=== PATIENT | female | born 1950 | race Caucasian/White ===

== ENCOUNTER 2017-08-18 10:22 | Outpatient (CLI) | payer MEDICARE, MEDICAID ==
--- OUTSIDE RECORDS SUMMARY | 2017-08-18 10:40 | XMS | Clinical Summary ---
:1950 Author Organization [facility] Address [address] [place] [address] Phone Care Team Providers Name Role Phone , Primary Care Provider Unavailable Allergies Not on File Current Medications Not on file Active Problems Not on file Social History Tobacco Use Types Packs/Day Years Used Date Never Assessed Sex Assigned at Date Recorded Not on file Last Filed Vital Signs Not on file Plan of Treatment Not on file Results Not on filefrom Last 3 Months
--- NOTE | 2017-08-18 14:33 | ULT ---
ULTRASOUND HEPATIC DOPPLER: Date: 08/18/17 HISTORY: Hepatitis C. COMPARISON: 2008. TECHNIQUE: Real-time Packer scale with color Doppler and spectral analysis of the liver and vessels was performed with a curvilinear transducer. FINDINGS: Hepatic contour is nodular. The echotexture is coarsened. The veins are patent with expected normal antegrade flow. No hepatic mass is visualized. Liver measures 19.3 cm in length. Spleen measures 11.6 cm x 7.0 x 4.6 cm. Splenic artery and vein are patent. The gallbladder has been removed. Sonographic Ames's sign is negative. Common bile duct measures 5 .0 mm. Pancreas is only partially seen. IMPRESSION: 1. Patent portal vein and portal venous branches, as well as hepatic veins. No directional flow. 2. Hepatic cirrhosis. No mass is appreciated. POS: [facility]
== END 2017-08-18 10:23 | disposition home or self-care (01) ==
LOC: ULT 10:22
PROVIDERS: ATTEND Internal Medicine Gastroenterology
DX: R19.7 Diarrhea, unspecified (principal); K74.60 Unspecified cirrhosis of liver
CPT/HCPCS: 36415; 76705; 80053; 82105; 83516; 84443; 85025

== ENCOUNTER 2017-11-11 17:58 | Emergency (ER) | payer MEDICARE, MEDICAID ==
--- NOTE | 2017-11-11 18:50 | RAD ---
TWO VIEWS CHEST: 11/11/17 PROVIDED CLINICAL HISTORY: Cough. FINDINGS: Comparison 05/18/13. Cardiac and mediastinal silhouette is within normal limits. The lungs appear clear. There is no pleur al fluid or pneumothorax apparent. IMPRESSION: No evidence for an acute cardiopulmonary process. POS: [facility]
[2017-11-11] MEDS ORDERED: Dexamethasone 4 mg/ml Vial ONE ×2 (19:59→20:01)
[2017-11-11] MEDS ORDERED: Acetaminophen 500 MG TAB ONE (20:51)
== END 2017-11-11 20:55 | disposition home or self-care (01) ==
LOC: ERS 17:58
DX: J11.1 Influenza due to unidentified influenza virus with other respiratory manifestations (principal); I25.2 Old myocardial infarction; E11.9 Type 2 diabetes mellitus without complications; I69.354 Hemiplegia and hemiparesis following cerebral infarction affecting left non-dominant side; E03.9 Hypothyroidism, unspecified; K74.60 Unspecified cirrhosis of liver; F31.9 Bipolar disorder, unspecified; F32.9 Major depressive disorder, single episode, unspecified
CPT/HCPCS: 71046; 94640; J1100; J7620

== ENCOUNTER 2018-02-01 20:10 | Observation (INO) | payer MEDICARE, MEDICAID ==
[2018-02-01 20:46] LABS: Mean Corpuscular HGB CONC 34.6 g/dL (32.0-36.0); Mean Corpuscular Hemoglobin 31.7 pg (27.0-31.0); Mean Corpuscular Volume 91.5 fl (81.0-99.0); Mean Platelet Volume 6.2 fL (7.4-10.4); Platelet Count 137 thou/uL (130-400); Red Blood Cell (RBC) Count 4.41 mill/uL (4.20-5.40); White Blood Cell (WBC) Count 4.9 thou/uL (4.8-10.8)
--- NOTE | 2018-02-01 21:03 | RAD ---
PA AND LATERAL CHEST: INDICATIONS: Chest pain. COMPARISON: 11/11/2017 FINDINGS: The lungs are clear. The cardiomediastinal silhouette is within normal limits. Post surgical change involving the lower cervical spine and both shoulders appears stable. No acute osseous abnormality is evident. IMPRESSION: No acute cardiopulmonary abnormality. POS: [facility]
[2018-02-01 21:06] LABS: ALT (SGPT) 23 U/L (8-55); AST (SGOT) 22 U/L (5-34); Albumin 4.3 g/dL (3.4-4.8); Alkaline Phosphatase 86 U/L (40-150); Anion Gap 15 mmol/L (10-20); BUN (Urea Nitrogen) 11 mg/dL (9.8-20.1); Bilirubin, Total 0.5 mg/dL (0.2-1.2); CK (CPK) 65 U/L (29-168); Calc. Creatinine Clearance 0 mL/min (70-130); Calcium 9.7 mg/dL (7.8-10.44); Carbon Dioxide 25 mmol/L (23-31); Chloride 98 mmol/L (98-107); Estimated GFR-MDRD 48; Globulin 3.4 g/dL (2.4-3.5); Glucose 456 mg/dL (80-115); Lipase 24 U/L (8-78); Potassium 3.8 mmol/L (3.5-5.1); Protein, Total 7.7 g/dL (6.0-8.3); Sodium 134 mmol/L (136-145)
[2018-02-01 21:14] LABS: Band 2 % (5-11); Eosinophils 3 % (0-10); Lymphocytes 47 % (21-51); MDiff Complete? YES; Monocytes 10 % (0-10); Neutrophil 35 % (42-75); Reactive Lymphocytes 3 % (0-10); Troponin I Less than 0.010 ng/mL (< 0.028)
[2018-02-01] MEDS ORDERED: Insulin Regular 300 UNITS/3 ML VIAL ONE ×2 (22:02→22:06)
[2018-02-01] MEDS ORDERED: Nitroglycerin 2% Ointment 1 INCH/1 GM Packet ONE (22:02)
[2018-02-01] MEDS ORDERED: Acetaminophen 325 MG TAB PO PRN (23:24)
[2018-02-01] MEDS ORDERED: Metoprolol Tartrate 25 MG TAB PO SCH (23:24)
[2018-02-01] MEDS ORDERED: Dextrose 5% in Water 1,000 ML IV PRN (23:24)
[2018-02-01] MEDS ORDERED: Dextrose 50% Abboject 50 ML SYRINGE SLOW IVP PRN (23:24)
[2018-02-01] MEDS ORDERED: Ondansetron ODT 4 MG TAB PO PRN (23:24)
[2018-02-01] MEDS ORDERED: HumaLOG 300 UNITS/3 ML VIAL SC PRN (23:24)
[2018-02-01] MEDS ORDERED: Enoxaparin Sodium 40 MG/0.4 ML SYRINGE SC SCH (23:24)
[2018-02-01] MEDS ORDERED: Ondansetron HCl/PF 4 MG/2 ML Vial IVP PRN (23:24)
[2018-02-01] MEDS ORDERED: Aspirin 325 MG TAB PO SCH (23:30)
[2018-02-02 00:21] LABS: CKMB 0.8 ng/mL (0-6.6); Troponin I Less than 0.010 ng/mL (< 0.028)
[2018-02-02] MEDS ORDERED: Mirtazapine 30 MG TAB PO SCH ×2 (01:15→21:00)
[2018-02-02] MEDS ORDERED: Gabapentin 400 MG CAP PO SCH ×2 (01:15→21:00)
[2018-02-02] MEDS ORDERED: rOPINIRole HCl 0.25 MG TAB PO SCH ×2 (01:15→21:00)
[2018-02-02] MEDS ORDERED: Topiramate 25 MG TAB PO SCH ×2 (01:15→21:00)
[2018-02-02] MEDS ORDERED: Donepezil HCl 5 MG TAB PO SCH ×2 (01:15→21:00)
[2018-02-02 01:53] VITALS: BMI 36.4
[2018-02-02] MEDS: Nitroglycerin 2% Ointment 1 INCH/1 GM Packet TOP SCH ×2 (05:09→15:27)
[2018-02-02 05:55] LABS: Hemoglobin A1c 9.6 % (4.0-6.0)
--- NOTE | 2018-02-02 05:56 | HP ---
PRIMARY CARE PHYSICIAN: Jerrod Hernandez. CHIEF COMPLAINT: Chest pain. HISTORY OF PRESENT ILLNESS: Ms. Doshi is a 67-year-old white female with a history of coronary dise ase, diabetes, cerebrovascular disease status post strokes and TIAs in the past, De La Fuente's palsy, hepati tis C, cirrhosis, bipolar and depression. The patient was in normal state of health and presented to outside urgent care for evaluation of ches t pain. This started about 4-5 days ago. She describes intermittent to the left chest. She does molina ve some neck referral. States she was standing still when this started up and it is made better if s he does not move and does not push on her chest. It is exacerbated by pushing on her chest reproduce s. She has had some dyspnea on exertion and some orthopnea and when she lays flat or rolls over to eithe r side her cough gets worse. She does have a headache on occasion, but no other current complaints. She specifically denies fevers or chills, nausea, vomiting, diarrhea, constipation. She had her last echo here was in 12/04/2014 that showed an EF of 50-55%, grade 1-3 diastolic dysfunc tion and mild aortic valve disease. PAST MEDICAL HISTORY: 1. Coronary artery disease with history of NV in the past. 2. Diabetes mellitus type 2, insulin-dependent. 3. Cerebrovascular accident x2. 4. TIA x1. 5. De La Fuente's palsy. 6. Hepatitis C. 7. Hypothyroidism. 8. Cirrhosis. 9. Bipolar disorder. 10. Depression. PAST SURGICAL HISTORY: 1. Thyroidectomy. 2. Appendectomy. 3. Cholecystectomy. 4. . 5. Hysterectomy. 6. Carpal tunnel release bilaterally. 7. Back surgery x2. 8. Rotator cuff repair. 9. Heart catheterization in the past. HOME MEDICATIONS: 1. Shahana 180 mg daily. 2. Mirtazapine 45 mg p.o. at bedtime. 3. Ropinirole 0.25 mg p.o. q.p.m. 4. Levothyroxine 175 mcg daily. 5. Topiramate 25-50 mg p.o. b.i.d. 6. Sertraline 100 mg daily. 7. Gabapentin 600 mg p.o. b.i.d. 1200 mg p.o. at bedtime. 8. Donepezil 5 mg p.o. q.p.m. 9. Metformin 500 mg p.o. daily. 10. Phenergan DM syrup as needed. 11. Regular insulin 15 units subcu b.i.d. ALLERGIES: 1. ASPIRIN. 2. BACTRIM. FAMILY HISTORY: Negative for clot or bleeding disorder. No immune dysfunction. SOCIAL HISTORY: Negative for habits x3. She does live alone. REVIEW OF SYSTEMS: A 10-point review of systems was performed and is negative for all systems except as stated as per HPI. PHYSICAL EXAMINATION: VITAL SIGNS: Temperature is 98.7, pulse 95, blood pressure 131/80, respiratory rate 20, satting 94% on room air. GENERAL: She is awake. She is alert. She is oriented x3. She is a somewhat odd sounding white fem carmenza. She does sound like she has a mental handicap. HEENT: Normocephalic, atraumatic. Pupils are equal, round, react to light bilaterally, mucous membr anes are moist. She has no visible lesions or thrush. NECK: Supple. She has no lymphadenopathy, JVD or thyromegaly. She has no normal carotid upstrokes. I do not appreciate bruits. LUNGS: Clear to auscultation bilaterally. She had no wheezes, no rales, no rhonchi. She has good a ir movement. Symmetrical chest excursion. No prolonged expiratory phase. CARDIOVASCULAR: She is slightly tachycardia, but regular. Normal S1, S2. No S3 or S4. I do not ap preciate any murmurs. ABDOMEN: Obese, she is nontender, nondistended. She has no rebound, rigidity or guarding. There is good bowel sounds in all 4 quadrants. EXTREMITIES: No cyanosis, no clubbing. Trace pedal edema. She has got 1+ dorsalis pedis and neonatal surgeon ior tibial pulses. SKIN: Skin is otherwise, warm, moist and well perfused. There are no other rashes or lesions. MUSCULOSKELETAL: Normal to inspection. Large joints appear normal. She has no inflammation, no pal pable effusions. She has tenderness to palpation that reproduces her presenting chest pain with palp ation over the left upper chest. NEUROLOGIC: Cranial nerves II-XII grossly intact. She has a normal speech pattern, she has 5/5 stre ngth in all 4 extremities. She has no focal neurologic deficits. LABORATORY DATA: Sodium 134, potassium 3.8, chloride 98, bicarbonate 25, BUN 11, creatinine 1.14, wh ich is up from baseline of 0.9, glucose was 456, calcium 9.7. Liver functions are within normal limi ts. CBC showed a white count of 4.9. She has a 35% granulocytes, 2% bands, and 47% lymphocytes. He moglobin is 14.0, hematocrit of 40.4, and platelet count is 137,000. Biomarkers are normal with a BNP of 69.8, CK-MB of 1.0 and troponin I undetectable., less than 0.010. Chest x-ray showed no acute cardiopulmonary disease. ASSESSMENT AND PLAN: 1. Atypical chest pain. Reproducible by palpation of the chest. I doubt this is her heart. We annemarie l place her in observation. Nitro paste and beta geraldo has been ordered, we will watch serial card iac biomarkers overnight and watch on telemetry. She may need to repeat echocardiogram due to the fa ct that it has been 3 years since her last one. 2. Diabetes mellitus type 2, we will continue sliding scale insulin for correction. She will be n.p .o. after midnight. 3. Cerebrovascular disease. 4. History of De La Fuente's palsy. 5. Hepatitis C with cirrhosis. No hepatic coma. 6. Hypothyroidism. We will continue her levothyroxine. 7. Bipolar disorder and depression. Continue home medications. The patient will be placed in observation on the observation unit with telemetry monitoring.
[2018-02-02] MEDS ORDERED: Levothyroxine 175 MCG TAB PO SCH (06:00)
[2018-02-02 06:22] LABS: CKMB 0.9 ng/mL (0-6.6); Troponin I Less than 0.010 ng/mL (< 0.028)
[2018-02-02 06:28] LABS: Anion Gap 11 mmol/L (10-20); BUN (Urea Nitrogen) 11 mg/dL (9.8-20.1); Calc. Creatinine Clearance 92 mL/min (70-130); Calcium 10.2 mg/dL (7.8-10.44); Carbon Dioxide 30 mmol/L (23-31); Cardiac Risk 5.1 (Less than 4.5); Chloride 102 mmol/L (98-107); Cholesterol 208 mg/dl (< 200 Desired); Estimated GFR-MDRD 69; Glucose 267 mg/dL (80-115); HDL Cholesterol 41 mg/dL (>60 Neg Risk); LDL Cholesterol, Calculated 127 mg/dL; Magnesium 1.8 mg/dL (1.6-2.6); Sodium 139 mmol/L (136-145); Triglycerides 198 mg/dL (Less than 150)
[2018-02-02 06:37] LABS: Band 3 % (5-11); Eosinophils 6 % (0-10); Hemoglobin 12.8 g/dL (12.0-16.0); Lymphocytes 58 % (21-51); MDiff Complete? YES; Mean Corpuscular HGB CONC 33.6 g/dL (32.0-36.0); Mean Corpuscular Hemoglobin 30.9 pg (27.0-31.0); Mean Platelet Volume 6.3 fL (7.4-10.4); Monocytes 5 % (0-10); Neutrophil 25 % (42-75); Platelet Count 138 thou/uL (130-400); Reactive Lymphocytes 3 % (0-10); Red Blood Cell (RBC) Count 4.16 mill/uL (4.20-5.40); White Blood Cell (WBC) Count 6.2 thou/uL (4.8-10.8)
[2018-02-02] MEDS ORDERED: Famotidine 20 MG TAB PO SCH (09:00)
[2018-02-02] MEDS ORDERED: Prevnar 13-Val Conj/PF 0.5 ML SYRINGE IM ONE (09:00)
[2018-02-02] MEDS ORDERED: Metoprolol Tartrate 25 MG TAB PO SCH (09:00)
--- NOTE | 2018-02-02 13:42 | NM ---
NUCLEAR MEDICINE CARDIAC STRESS STUDY WITH EJECTION FRACTION: HISTORY: Chest pain. TECHNIQUE: This is done as a stress study only, using 30.5 millicuries of 99m technetium sestamibi. FINDINGS: This shows a fairly normal distribution of radiopharmaceutical. No signs of ischemia. WALL MOTION: There is symmetric contractility to the ventricle. LEFT VENTRICULAR EJECTION FRACTION: The calculated left ventricular ejection fraction is 67%. IMPRESSION: Unremarkable myocardial stress study. POS: [facility]
--- NOTE | 2018-02-02 15:02 | CT ---
CT ANGIOGRAM OF CHEST WITH CONTRAST: Date: 02/02/18 HISTORY: Chest pain, chest pressure, pulmonary embolism. COMPARISON: Chest radiograph from prior day. TECHNIQUE: CT angiogram chest performed after the intravenous administration of contrast. 3D rendering provided. FINDINGS: The esophagus is dilated with extensive debris within the esophagus. There is also some radiopaque ma terial within the mid and upper 1/3 of esophagus, which is curvilinear in shape. Lap band is in place . Evaluation for distal embolism is limited due to phase of contrast. No proximal or segmental pulmonar y arterial filling defect. The hepatic contour appears to be somewhat nodular. There are perihepatic varices. Pulmonary trunk size measures over 3.5 cm, markedly dilated. Dense mitral annular calcifications. Mild peribronchovascular cuffing. Mild interstitial thickening suggesting edema. No pneumothorax. No large effusion. There is cardiomegaly. IMPRESSION: 1. No segmental pulmonary arterial filling defect. 2. Pulmonary arterial hypertension. 3. Extensive debris and radiopaque material within the dilated esophagus may be due to stricture, ma ss, or lap band. Recommend upper endoscopy. 4. Mild pulmonary edema and cardiomegaly. POS: [facility]
[2018-02-02 16:00] VITALS: BP 106/57; TEMP 97.6
[2018-02-02] MEDS ORDERED: Iopamidol 370 76% 100 ML VIAL ONE (16:09)
[2018-02-02] MEDS ORDERED: Regadenoson 0.4 MG/5 ML SYRINGE ONE (16:20)
--- NOTE | 2018-02-02 20:38 | DIS ---
DATE OF ADMISSION: 02/02/2018 DATE OF DISCHARGE: 02/02/2018 PRIMARY CARE PROVIDER: Jie Garza NP DISCHARGE DIAGNOSES: 1. Chest pain. 2. Esophageal dilatation with extensive debris within the esophagus as seen on CT angiogram of chest . 3. Pulmonary arterial hypertension with markedly dilated pulmonary trunk size as seen on CT angiogra m of chest. CONDITION OF PATIENT AT THE TIME OF DISCHARGE: Stable. I assessed Ms. Doshi prior to discharge. S he reports that chest pain has improved. She also reports occasional cough, but no fevers or sputum. Vital signs are stable. S1 and S2 are heard, regular. Lungs are clear to auscultation bilaterally . DISCHARGE MEDICATIONS: In addition to the preadmission home medications as dictated on history and p hysical note from 02/02/2018, she is being discharged home on Tessalon Perles 100 mg 3 times a day as needed. HOSPITAL COURSE: Mr. Doshi is a pleasant 67-year-old lady, who was admitted to [facility] on observation status on 02/02/2018 for atypical chest pain. She had a nuclear stress test, which was unremarkable. She had left ventricular ejection fraction of 67%. She had an abnorma l D-dimer, which triggered CT angiogram of the chest. There was no segmental pulmonary arterial fill ing defect. She had pulmonary arterial hypertension and extensive debris and radiopaque material wit hin the dilated esophagus, likely due to the patient's lap band. The patient reported that she sees Dr. Mccracken as outpatient and she will follow up with him as outpat ient. She has also been advised to follow up with armature inspector through her primary care provider's office. She had elevated triglycerides of 198, cholesterol 208, LDL cholesterol 127 and HDL cholesterol 41. Her creatinine was normal at 0.83. She had a normal white count of 6200, hemoglobin 12.8 and platele t count 138,000. Many thanks for allowing me to participate in your patient's care. Please feel free to contact me wi th any questions or concerns. DISCHARGE DESTINATION: Home.
== END 2018-02-02 17:17 | disposition home or self-care (01) ==
LOC: ERS 20:10 → 2SW 22:00
PROVIDERS: ADMIT Internal Medicine Infectious Disease; ATTEND Internal Medicine Infectious Disease
DX: R07.89 Other chest pain (principal); K22.8 Other specified diseases of esophagus; I27.21 Secondary pulmonary arterial hypertension; I25.10 Atherosclerotic heart disease of native coronary artery without angina pectoris; E11.9 Type 2 diabetes mellitus without complications; G51.0 Bell's palsy; K74.60 Unspecified cirrhosis of liver; E03.9 Hypothyroidism, unspecified; I25.2 Old myocardial infarction; F31.9 Bipolar disorder, unspecified; Z88.1 Allergy status to other antibiotic agents; Z88.2 Allergy status to sulfonamides; Z88.8 Allergy status to other drugs, medicaments and biological substances; Z79.84 Long term (current) use of oral hypoglycemic drugs; Z79.899 Other long term (current) drug therapy; Z98.890 Other specified postprocedural states; Z86.73 Personal history of transient ischemic attack (TIA), and cerebral infarction without residual deficits; Z86.19 Personal history of other infectious and parasitic diseases
CPT/HCPCS: 71046; 71275; 78452; 80048; 80053; 80061; 82550; 82553 ×3; 82962 ×2; 83036; 83690; 83735; 83880; 84484 ×3; 85025 ×2; 85379; 93005; 93017; 96372 ×2; 96374; 99285; A9500; G0378; 36415; 36416; 90471; 90670; G0009; J1650; J1815; J2785

== ENCOUNTER 2018-02-10 16:33 | Observation (INO) | payer MEDICARE, MEDICAID ==
--- NOTE | 2018-02-10 18:00 | CT ---
NONCONTRAST CT HEAD 02/10/18 HISTORY: Headache. Vomiting. Patient fell and hit head on ground. COMPARISON: 10/09/16 FINDINGS: Areas of decreased attenuation are again seen in the periventricular white matter which are nonspecif ic but likely reflective of chronic small vessel ischemic changes. There is no evidence of an acute c ortical infarction, hemorrhage, mass effect or midline shift. Again noted is cerebral volume loss. Th e ventricular system is normal in size, shape and position for the degree of sulcal atrophy. No calvarial fracture is seen, but there is a fracture involving the left anterior aspect of the arch of C1 as well as fracture of the posterior arch of C1 with partial visualization of C2 fracture. How ever, this would be better evaluated with CT of the cervical spine. Dense vascular calcifications in the distal vertebral arteries and in the carotid siphons. Partially calcified scalp lesion is seen in the right lateral parietal region, probably related to a calcified sebaceous cyst. IMPRESSION: 1. Fractures involving the C1 and C2 vertebral bodies incompletely imaged. Please see CT scan ce rvical spine for further details. 2. Chronic small vessel ischemic change and cerebral volume loss. 3. No acute intracranial abnormalities demonstrated. 4. Above findings discussed with Dr. Espino regarding the cervical spine fracture partially imaged on this exam on 02/10/18 at 1701 hours. POS: [facility]
[2018-02-10 18:04] LABS: #Eosinphils 0.2 thou/uL (0.0-0.7); #Lymphocytes 1.8 thou/uL (1.20-3.40); #Monocytes 0.4 thou/uL (0.11-0.59); #Neutrophils 2.2 thou/uL (1.40-6.50); %Basophils 0.3 % (0.0-1.0); %Eosinophils 4.7 % (0.0-10.0); %Lymphocytes 38.8 % (21.0-51.0); %Monocytes 8.2 % (0.0-10.0); %Neutrophils 48.1 % (42.0-75.0); Hemoglobin 14.5 g/dL (12.0-16.0); Mean Corpuscular HGB CONC 34.2 g/dL (32.0-36.0); Mean Corpuscular Hemoglobin 31.9 pg (27.0-31.0); Mean Corpuscular Volume 93.2 fl (81.0-99.0); Mean Platelet Volume 6.8 fL (7.4-10.4); Platelet Count 141 thou/uL (130-400); RBC Distribution Width 12.3 % (11.5-14.5); Red Blood Cell (RBC) Count 4.55 mill/uL (4.20-5.40); White Blood Cell (WBC) Count 4.5 thou/uL (4.8-10.8)
[2018-02-10] MEDS ORDERED: Morphine 4 MG/ML VIAL ONE ×4 (18:12→21:16)
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
[2018-02-10 18:37] LABS: CKMB 0.8 ng/mL (0-6.6); Troponin I Less than 0.010 ng/mL (< 0.028)
[2018-02-10 18:40] LABS: ALT (SGPT) 20 U/L (8-55); AST (SGOT) 27 U/L (5-34); Alkaline Phosphatase 84 U/L (40-150); Anion Gap 13 mmol/L (10-20); BUN (Urea Nitrogen) 12 mg/dL (9.8-20.1); Bilirubin, Total 0.6 mg/dL (0.2-1.2); Calc. Creatinine Clearance 0 mL/min (70-130); Calcium 9.7 mg/dL (7.8-10.44); Carbon Dioxide 21 mmol/L (23-31); Chloride 107 mmol/L (98-107); Estimated GFR-MDRD 65; Globulin 3.4 g/dL (2.4-3.5); Glucose 360 mg/dL (80-115); Lipase 17 U/L (8-78); Protein, Total 7.4 g/dL (6.0-8.3); Sodium 137 mmol/L (136-145)
[2018-02-10 18:42] LABS: INR-International Normal Ratio 1.1; PTT 27.6 SEC (22.9-36.1); Prothrombin Time 14.5 SEC (12.0-14.7)
[2018-02-10] MEDS ORDERED: Nitroglycerin 2% Ointment 1 INCH/1 GM Packet ONE (18:48)
--- NOTE | 2018-02-10 18:58 | RAD ---
ONE VIEW CHEST: 02/10/18 HISTORY: Cervical spine fracture. Preoperative exam. COMPARISON: 05/31/17 FINDINGS: Normal cardiac silhouette. The lungs and pleural bases are clear. No pneumothorax or osseous abnormal ities. IMPRESSION: No acute cardiopulmonary process. POS: [facility]
[2018-02-10] MEDS ORDERED: Fentanyl 100 MCG/2 ML VIAL ONE (19:50)
--- NOTE | 2018-02-10 19:58 | CT ---
CT THORACIC SPINE WITHOUT CONTRAST: 02/10/18 HISTORY: Fall. Pain. COMPARISON: None. TECHNIQUE: CT of the thoracic spine is performed without contrast. Reformatted images are submitted for interpre tation. FINDINGS: The visualized mediastinal structures demonstrate coronary artery disease. There is a small hiatal he rnia. Note is made of a gastric lap band. The visualized upper solid organs are unremarkable. No paraspinal hematoma. Central spinal canal is patent. No evidence of fracture. Dependent atelectatic change in the lung parenchyma is noted. There is significant degenerative change of the T1-T2 level. Additional osteophyte formation at the T9-T10 level is noted. IMPRESSION: No evidence of fracture. POS: [facility]
--- NOTE | 2018-02-10 20:24 | CT ---
CT LUMBAR SPINE WITHOUT CONTRAST: HISTORY: Fall. Cervical spine fracture. Post traumatic pain. COMPARISON: None. TECHNIQUE: CT lumbar spine is performed without contrast. Reformatted images are submitted for interpretation. FINDINGS: The visualized retroperitoneal structures are unremarkable. The visualized alimentary canal and ivette d organs are unremarkable. Nonspecific hypodensity in the left hemipelvis, incompletely evaluated. There is diffuse bone demineralization. The sacrum appears to be intact. There are bilateral transp edicular screws at L4, L5, and S1. There is perihardware lucency involving bilateral transpedicular screws at L4. The left transpedicular screw traverses the superior endplate of L4 and is actually wi thin the L3-L4 disk space. There is a prosthesis at the L4-L5 disk space. With regard to the lumbar vertebrae, no evidence of fracture. There are degenerative changes in the posterior elements. Ther e is 5.3 mm of anterolisthesis of L4 upon L5. Limited evaluation of the contents of the central spinal canal and neural foramina. No high grade ce ntral canal stenosis at L1-L2 or L2-L3. At L3-L4, evaluation is limited by beam attenuation artifact . There is at least mild central canal stenosis. The neural foramina are patent. L4-L5: There is a disk prosthesis. Posterior element hypertrophy is present. There is at least mod erate central canal stenosis. The right neural foramen is patent. moderate left foraminal narrowing . L5-S1: No high-grade central canal stenosis. or high-grade foraminal narrowing. IMPRESSION: 1. No fracture. 2. Postsurgical change, as above. There is perihardware lucency involving the bilateral transpedicu lar screws at L4. The left transpedicular screw at L4 extends down the confines of the vertebral bod y and is actually within the L3-L4 disk space. 3. Degenerative change of the lumbar spine with varying degrees of central canal stenosis and forami nal narrowing, as above. 4. Left adnexal hypodensity, incompletely evaluated. A nonemergent pelvis ultrasound can be perform ed. POS: [facility]
[2018-02-10] MEDS ORDERED: traMADol HCl 50 MG TAB PO PRN (21:22)
[2018-02-10] MEDS ORDERED: Ondansetron HCl/PF 4 MG/2 ML Vial IVP PRN (21:22)
[2018-02-10] MEDS ORDERED: Ondansetron ODT 4 MG TAB PO PRN (21:22)
[2018-02-10] MEDS ORDERED: HYDROcodone/Acetaminophen 10/325 mg Tablet PO PRN (21:22)
[2018-02-10] MEDS ORDERED: Dextrose 50% Abboject 50 ML SYRINGE SLOW IVP PRN (21:22)
[2018-02-10] MEDS ORDERED: Dextrose 5% in Water 1,000 ML IV PRN (21:22)
[2018-02-10] MEDS ORDERED: Ibuprofen 800 MG TAB PO PRN (21:22)
[2018-02-10 22:38] VITALS: BMI 32.1
[2018-02-10] MEDS: hydrALAZINE 20 MG/ML VIAL SLOW IVP PRN (22:52)
[2018-02-10] MEDS: traMADol HCl 50 MG TAB PO SCH (22:52)
[2018-02-10] MEDS: Famotidine 20 MG TAB PO SCH (22:52)
[2018-02-10] MEDS: Acetaminophen 500 MG TAB PO PRN (23:00)
[2018-02-10] MEDS ORDERED: Famotidine 20 MG TAB PO SCH (23:00)
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
[2018-02-11] MEDS: Ibuprofen 600 MG TAB PO PRN ×3 (01:39→19:00)
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
[2018-02-11] MEDS: Acetaminophen 500 MG TAB PO PRN ×2 (04:22→09:14)
[2018-02-11] MEDS: traMADol HCl 50 MG TAB PO SCH ×4 (04:22→21:03)
[2018-02-11] MEDS: Famotidine 20 MG TAB PO SCH ×2 (09:12→20:42)
[2018-02-11] MEDS: Gabapentin 300 MG CAP PO SCH ×2 (09:12→20:43)
--- NOTE | 2018-02-11 13:05 | CON ---
DATE OF CONSULTATION: 02/11/2018 This is a 50-minute initial hospital visit note, in which 50 minutes were spent in review of the imag ing record, evaluation, examination of the patient, and formulation of a plan. Greater than 50% of t he time was spent in counseling on Yayo Doshi, 1950. CHIEF COMPLAINT: C1, C2, C3 fracture, status post fall with hyperextension injury. HISTORY OF PRESENT ILLNESS: I reviewed the notes of my colleague Mayur Smith PA-C and I agree wi th its content. Ms. Doshi is a 67-year-old woman, who fell and landed directly on her face. She mathew stained a C1 ring fracture along with a C2 type 2 odontoid fracture with a hangman's variant pattern with a very small left lateral mass fracture at C3. There is some listhesis of the odontoid on the p arent vertebral body of C2, although the fragments remained well apposed. She has been neurologicall y intact in a cervical collar that has been custom fitted by our childcare worker. I should note her head a nd spinal imaging, otherwise, is unremarkable. She has loosening of her hardware at L4. This is lik cris chronic and has an ACDF, but no obvious issues. Obviously, the main issue at this point is her c ervical fractures. PHYSICAL EXAMINATION: She is alert, appropriate. She has full strength in her extremities. Her col lar is very well fitting. IMPRESSION AND PLAN: I will let the patient know that this will hopefully heal in a collar. We will try this. Her body habitus is not one that is favorable for Halo and I have let her know it. I hav e also let her know that should she fail Halo or even collar orthotics then we may be looking at an o ccipital-cervical fusion, which again at her age of 67 is less than ideal. We will arrange followup in my clinic in the next 2 weeks. She is to wear the collar at all times. She also has a [place] collar and I have emphasized the importance of this. DIAGNOSIS: C1, C2, C3 fracture, status post fall
[2018-02-11] MEDS: Insulin Regular 300 UNITS/3 ML VIAL SC PRN ×2 (14:43→20:46)
[2018-02-11] MEDS: traMADol HCl 50 MG TAB PO PRN ×2 (14:43→21:04)
[2018-02-11] MEDS ORDERED: Topiramate 25 MG TAB PO PRN (20:18)
[2018-02-11] MEDS ORDERED: Donepezil HCl 5 MG TAB PO SCH (21:00)
[2018-02-11] MEDS ORDERED: rOPINIRole HCl 0.25 MG TAB PO SCH (21:00)
[2018-02-11] MEDS ORDERED: Mirtazapine 15 MG TAB PO SCH (21:00)
[2018-02-12] MEDS: Acetaminophen 500 MG TAB PO PRN
[2018-02-12] MEDS: traMADol HCl 50 MG TAB PO SCH ×3 (03:04→15:54)
[2018-02-12] MEDS: hydrALAZINE 20 MG/ML VIAL SLOW IVP PRN (03:12)
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
[2018-02-12] MEDS: traMADol HCl 50 MG TAB PO PRN ×2 (03:49→12:35)
[2018-02-12] MEDS: Ibuprofen 600 MG TAB PO PRN (05:07)
[2018-02-12] MEDS ORDERED: Levothyroxine 175 MCG TAB PO SCH (06:00)
[2018-02-12] MEDS: Insulin Regular 300 UNITS/3 ML VIAL SC PRN ×2 (06:13→12:35)
--- NOTE | 2018-02-12 08:54 | PRG ---
DATE OF SERVICE: 02/12/2018 This is a 15 minute subsequent patient evaluation in which greater than 50% of the exam was spent cou nseling and coordinating patient's care. Remainder of the exam was spent review of patient's medical records and formulation of treatment plan. SUBJECTIVE: Ms. Doshi is seen in followup. She continues to have posterior neck pain. She states over the past one day, she began to experience entire left upper extremity pain. She is continuing t o wear her its learning J collar that is well fitting. She has full strength in the bilateral upper and solis ateral lower extremities. Her arm pain may be likely to irritated nerve roots and given the fact ijeoma t she has a previous ACDF, may be related to this. Although, her pain is in a nondermatomal distribu tion, may be related to shoulder pathology. Nonetheless, we will continue to monitor this and this s hould improve over the next several days to weeks. She is stable for discharge once her pain is unde r satisfactory control. We will set up appropriate outpatient followup appointments. Please call wi th any questions.
[2018-02-12] MEDS ORDERED: Insulin Detemir 100 UNITS/ML 15 UNITS in Pre-Filled Syringe 1 EACH SC SCH (09:00)
[2018-02-12] MEDS: Acetaminophen 500 MG TAB PO SCH ×2 (09:12→12:35)
[2018-02-12] MEDS: Famotidine 20 MG TAB PO SCH (09:13)
[2018-02-12] MEDS: Gabapentin 300 MG CAP PO SCH ×2 (09:13→15:54)
[2018-02-12] MEDS ORDERED: Cyclobenzaprine 10 MG TAB PO PRN (09:19)
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
[2018-02-12 15:56] VITALS: BP 134/79; TEMP 97.7
== END 2018-02-12 18:14 | disposition home or self-care (01) ==
LOC: ERS 16:33 → SJJU 20:33 → SURG A 02-11 09:17 → SJJU 02-11 09:20
PROVIDERS: ADMIT Surgery; ATTEND Surgery
DX: S12.01XA Stable burst fracture of first cervical vertebra, initial encounter for closed fracture (principal); S12.110A Anterior displaced Type II dens fracture, initial encounter for closed fracture; S12.200A Unspecified displaced fracture of third cervical vertebra, initial encounter for closed fracture; G89.11 Acute pain due to trauma; I25.10 Atherosclerotic heart disease of native coronary artery without angina pectoris; F31.9 Bipolar disorder, unspecified; I69.354 Hemiplegia and hemiparesis following cerebral infarction affecting left non-dominant side; G51.0 Bell's palsy; I25.2 Old myocardial infarction; K74.60 Unspecified cirrhosis of liver; F22 Delusional disorders; E89.0 Postprocedural hypothyroidism; Z98.1 Arthrodesis status; E11.65 Type 2 diabetes mellitus with hyperglycemia; V89.9XXA Person injured in unspecified vehicle accident, initial encounter; Z79.4 Long term (current) use of insulin; Z79.899 Other long term (current) drug therapy; Z88.2 Allergy status to sulfonamides; Z88.6 Allergy status to analgesic agent; Z90.49 Acquired absence of other specified parts of digestive tract; Z90.710 Acquired absence of both cervix and uterus; Z98.890 Other specified postprocedural states; Z98.891 History of uterine scar from previous surgery
CPT/HCPCS: 70450; 71045; 72125; 72128; 72131; 80053; 82553; 82962 ×2; 83690; 84484; 85025; 85610; 85730; 86850; 86900; 86901; 93005; 96374; 96375 ×2; 96376 ×2; 97116; 97139 ×4; 97530 ×2; 99285; G0378; G8978; G8979; G8980; G8987; G8988; G8989; L0172; L0174; 36416; G0390; J0360; J1815; J2270; J3010

== ENCOUNTER 2018-02-24 09:57 | Outpatient (CLI) | payer MEDICARE, MEDICAID ==
--- NOTE | 2018-02-24 11:55 | RAD ---
CERVICAL SPINE FIVE VIEWS: 02/24/2018 HISTORY: Cervical spine fracture. The patient fell on 02/10/2018. History of prior neck surgery. COMPARISON: CT cervical spine on 02/10/2018. FINDINGS: There is an overlying neck brace noted. The previously described fracture involving the base of the odontoid is again seen. The superior fracture fragment is again displaced anteriorly, with respect t o the body of the C2 vertebral body, measuring approximately 3 mm, which is stable from the prior exa m. The fracture of C1 is less well delineated on this exam but lateral projection questions the poss ibility of a fracture of C1 as well. There is no evidence of subluxation. There are post surgical changes again note, related to anterior cervical fusion of the C5 through C7 levels, with anterior plate and screws transfixing these levels . Intradiskal prostheses are noted. Degenerative changes are seen in the cervical spine. The C1-C2 cervicothoracic junction is seen on the lateral view. The prevertebral soft tissues are within norm al limits. IMPRESSION: 1. Stable, mildly displaced fracture involving the C2 vertebral body, related to type III odontoid f racture. 2. The fracture of the C1 vertebral body is less well delineated on this exam. 3. Anterior cervical fusion of C5 through C7. POS: [facility]
== END 2018-02-24 09:58 | disposition home or self-care (01) ==
LOC: TBSIIMAG 09:57
PROVIDERS: ATTEND Surgery
DX: S12.100D Unspecified displaced fracture of second cervical vertebra, subsequent encounter for fracture with routine healing (principal)
CPT/HCPCS: 72040

== ENCOUNTER 2018-03-10 13:50 | Outpatient (CLI) | payer MEDICARE, MEDICAID ==
--- NOTE | 2018-03-10 15:35 | RAD ---
CERVICAL SPINE 3 VIEWS: HISTORY: Fracture. Followup. COMPARISON: 02/24/18. FINDINGS: Anterior cervical fusion at the C5-7__ levels is again demonstrated. Type III odontoid fracture at t he base of the odontoid process is unchanged in appearance from the previous exam with approximately 0.3 cm anterior displacement and apex posterior angulation. Posterior C1 ring fracture is now better visualized. Degenerative changes are apparent throughout the cervical spine. Leftward convex curvature on the fr ontal view is unchanged. IMPRESSION: Stable radiographic appearance of C1 and C2 vertebral fractures. POS: [facility]
== END 2018-03-10 13:51 | disposition home or self-care (01) ==
LOC: TBSIIMAG 13:50
PROVIDERS: ATTEND Neurological Surgery
DX: S12.000D Unspecified displaced fracture of first cervical vertebra, subsequent encounter for fracture with routine healing (principal); S12.100D Unspecified displaced fracture of second cervical vertebra, subsequent encounter for fracture with routine healing
CPT/HCPCS: 72040

== ENCOUNTER 2018-04-07 12:46 | Outpatient (CLI) | payer MEDICARE, MEDICAID ==
--- NOTE | 2018-04-07 13:59 | RAD ---
3 VIEWS CERVICAL SPINE: Date: 04/07/18 COMPARISON: 03/10/18. HISTORY: History of cervical fracture. FINDINGS: Three views of the cervical spine show a stable appearance of the fracture of the odontoid process of C2. There are postsurgical changes in the lower cervical spine. The lower vertebral bodies demonstra te normal alignment without subluxation. No prevertebral soft tissue swelling is seen. IMPRESSION: Stable C2 fracture as above. POS: [facility]
== END 2018-04-07 12:47 | disposition home or self-care (01) ==
LOC: TBSIIMAG 12:46
PROVIDERS: ATTEND Surgery
DX: S12.100D Unspecified displaced fracture of second cervical vertebra, subsequent encounter for fracture with routine healing (principal)
CPT/HCPCS: 72040

== ENCOUNTER 2018-05-10 13:10 | Outpatient (CLI) | payer MEDICARE, MEDICAID ==
--- NOTE | 2018-05-10 15:24 | RAD ---
CERVICAL SPINE THREE TWO VIEWS: History: Follow up fracture. Comparison: 04-07-18 FINDINGS: There appears to be some sclerosis along the odontoid process, likely a healing fracture. No further displacement. ACDF hardware C5-C7 is intact without hardware complication. The C1-2 articulation appears normal. IMPRESSION: Expected interval healing of the odontoid process fracture without further displacement. POS: [facility]
== END 2018-05-10 13:11 | disposition home or self-care (01) ==
LOC: TBSIIMAG 13:10
PROVIDERS: ATTEND Surgery
DX: S12.110D Anterior displaced Type II dens fracture, subsequent encounter for fracture with routine healing (principal)
CPT/HCPCS: 72040

== ENCOUNTER 2021-03-10 18:08 | Inpatient (IN) | payer MEDICARE, MEDICAID ==
[2021-03-10 18:36] LABS: #Eosinphils 0.2 thou/uL (0.0-0.7); #Lymphocytes 1.4 thou/uL (1.20-3.40); #Monocytes 0.4 thou/uL (0.11-0.59); #Neutrophils 1.9 thou/uL (1.40-6.50); %Basophils 1.1 % (0.0-1.0); %Eosinophils 4.9 % (0.0-10.0); %Lymphocytes 35.9 % (21.0-51.0); %Neutrophils 48.1 % (42.0-75.0); Hemoglobin 12.3 g/dL (12.0-16.0); Mean Corpuscular HGB CONC 35.5 g/dL (32.0-36.0); Mean Corpuscular Hemoglobin 33.4 pg (27.0-31.0); Platelet Count 127 thou/uL (130-400); RBC Distribution Width 12.4 % (11.5-14.5); Red Blood Cell (RBC) Count 3.68 mill/uL (4.20-5.40)
[2021-03-10 18:48] LABS: ALT (SGPT) 17 U/L (8-55); AST (SGOT) 15 U/L (5-34); Albumin 3.4 g/dL (3.4-4.8); Alkaline Phosphatase 74 U/L (40-110); Anion Gap 14 mmol/L (10-20); BUN (Urea Nitrogen) 6 mg/dL (9.8-20.1); Bilirubin, Total 0.5 mg/dL (0.2-1.2); CK (CPK) 55 U/L (29-168); Calc. Creatinine Clearance 0 mL/min (70-130); Calcium 8.3 mg/dL (7.8-10.44); Carbon Dioxide 22 mmol/L (23-31); Chloride 99 mmol/L (98-107); Globulin 2.4 g/dL (2.4-3.5); Lipase 32 U/L (8-78); Potassium 4.9 mmol/L (3.5-5.1); Protein, Total 5.8 g/dL (5.8-8.1); Sodium 130 mmol/L (136-145)
[2021-03-10 18:52] LABS: Glucose 717 mg/dL (80-115)
[2021-03-10 18:53] LABS: Bilirubin Negative (Negative); Blood, Urine Negative (Negative); Clarity Clear (Clear); Glucose, Urine (Dipstick) Greater than 1000 mg/dL (Negative); Ketone, Urine Negative (Negative); Leukocyte Negative Leu/uL (Negative); Nitrite Negative (Negative); Protein, Urine (Dipstick) Negative (Neg-Trace); Specific Gravity, Urine 1.023 (1.002-1.036); Urobilinogen Normal mg/dL (Less than 2)
[2021-03-10 19:00] LABS: Actual Bicarbonate (HCO3v) 28 mEq/L (22-28); Analyzer IN Cardio ER; Base Excess -0.1 mEq/L (-2.0 to +3.0); Calcium, Ionized (venous) 1.13 mmol/L (1.16-1.32); Chloride (VBG) 98 mmol/L (98-106); Hemoglobin (Hb) 12.9 g/dL (11.7-16.1); Potassium (VBG) 4.86 mmol/L (3.70-5.30); Sodium 131.6 mmol/L (133-146); pH (venous) 7.29 (7.32-7.43)
[2021-03-10] MEDS ORDERED: Potassium Chloride 20 MEQ TAB ONE (19:11)
[2021-03-10] MEDS ORDERED: INSULIN REGULAR IN 0.9 % NACL 100 UNIT/100 ML BAG ONE (19:21)
[2021-03-10] MEDS ORDERED: Potassium Bicarbonate/Cit Ac 20 MEQ TAB PO SCH (19:30)
[2021-03-10] MEDS ORDERED: Clopidogrel Bisulfate 75 MG TAB ONE (19:54)
[2021-03-10] MEDS ORDERED: Acetaminophen 325 MG TAB PO PRN (20:53)
[2021-03-10] MEDS ORDERED: Electrolyte Replacement Protocol 1 EACH IVPB ONE (20:53)
[2021-03-10] MEDS ORDERED: Sodium Chloride 0.9% 1,000 ML IV PRN ×4 (20:53)
[2021-03-10] MEDS ORDERED: NS 0.9% w/ 20 MEQ KCL 1,000 ML IV PRN ×2 (20:53)
[2021-03-10] MEDS ORDERED: Dextrose 5 %-0.45 % NaCl 1,000 ML IV PRN (20:53)
[2021-03-10] MEDS ORDERED: HUMULIN R 100 UNITS in Sodium Chloride 0.9% 100 ML IVPB SCH (21:00)
[2021-03-10] MEDS ORDERED: Electrolyte Replacement Protocol FS PRN (21:30)
[2021-03-10 21:43] LABS: Lactic Acid 2.7 mmol/L (0.5-2.2)
[2021-03-10 21:45] LABS: Anion Gap 13 mmol/L (10-20); BUN (Urea Nitrogen) 6 mg/dL (9.8-20.1); Calc. Creatinine Clearance 0 mL/min (70-130); Calcium 8.4 mg/dL (7.8-10.44); Carbon Dioxide 23 mmol/L (23-31); Chloride 102 mmol/L (98-107); Glucose 434 mg/dL (80-115); Potassium 4.4 mmol/L (3.5-5.1); Sodium 134 mmol/L (136-145)
[2021-03-10] MEDS: HYDROcodone/Acetaminophen 5/325 mg Tablet PO PRN (22:44)
[2021-03-10 23:30] VITALS: BMI 37.2
[2021-03-11] MEDS ORDERED: Loratadine 10 MG TAB PO PRN (00:02)
[2021-03-11] MEDS ORDERED: Gabapentin 400 MG CAP PO SCH (00:30)
[2021-03-11] MEDS: D5 1/2 NS w/20 mEq KCL 1,000 ML IV PRN ×3 (00:30→08:43)
[2021-03-11 01:36] LABS: BUN (Urea Nitrogen) 5 mg/dL (9.8-20.1); Calc. Creatinine Clearance 110 mL/min (70-130); Calcium 8.2 mg/dL (7.8-10.44); Carbon Dioxide 23 mmol/L (23-31); Glucose 241 mg/dL (80-115)
[2021-03-11 02:01] LABS: Anion Gap 11 mmol/L (10-20); Chloride 107 mmol/L (98-107); Potassium 4.3 mmol/L (3.5-5.1); Sodium 136 mmol/L (136-145)
[2021-03-11 03:59] LABS: #Eosinphils 0.3 thou/uL (0.0-0.7); #Monocytes 0.3 thou/uL (0.11-0.59); #Neutrophils 1.9 thou/uL (1.40-6.50); %Basophils 1.1 % (0.0-1.0); %Eosinophils 6.3 % (0.0-10.0); %Monocytes 7.2 % (0.0-10.0); %Neutrophils 41.4 % (42.0-75.0); Hemoglobin 11.6 g/dL (12.0-16.0); Mean Corpuscular HGB CONC 34.9 g/dL (32.0-36.0); Mean Corpuscular Hemoglobin 32.4 pg (27.0-31.0); Mean Corpuscular Volume 92.8 fL (78.0-98.0); Mean Platelet Volume 6.8 fL (7.4-10.4); Platelet Count 132 thou/uL (130-400); RBC Distribution Width 12.3 % (11.5-14.5); Red Blood Cell (RBC) Count 3.58 mill/uL (4.20-5.40); White Blood Cell (WBC) Count 4.6 thou/uL (4.8-10.8)
[2021-03-11 04:23] LABS: Anion Gap 10 mmol/L (10-20); BUN (Urea Nitrogen) 4 mg/dL (9.8-20.1); Calc. Creatinine Clearance 119 mL/min (70-130); Calcium 8.1 mg/dL (7.8-10.44); Carbon Dioxide 21 mmol/L (23-31); Cardiac Risk 2.1 (Less than 4.5); Chloride 108 mmol/L (98-107); Cholesterol 83 mg/dl (< 200 Desired); Glucose 223 mg/dL (80-115); HDL Cholesterol 39 mg/dL (>60 Neg Risk); LDL Cholesterol, Calculated 32 mg/dL; Potassium 4.2 mmol/L (3.5-5.1); Sodium 135 mmol/L (136-145); Triglycerides 58 mg/dL (Less than 150)
[2021-03-11 04:36] LABS: SARS-CoV-2 NAA Rapid Test Not Detected (NotDetected)
[2021-03-11] MEDS: HYDROcodone/Acetaminophen 5/325 mg Tablet PO PRN (04:36)
[2021-03-11 05:54] LABS: Anion Gap 8 mmol/L (10-20); BUN (Urea Nitrogen) 4 mg/dL (9.8-20.1); Calc. Creatinine Clearance 121 mL/min (70-130); Calcium 7.8 mg/dL (7.8-10.44); Carbon Dioxide 25 mmol/L (23-31); Chloride 108 mmol/L (98-107); Glucose 226 mg/dL (80-115); Potassium 4.1 mmol/L (3.5-5.1); Sodium 137 mmol/L (136-145)
[2021-03-11] MEDS: Clopidogrel Bisulfate 75 MG TAB PO SCH (08:42)
[2021-03-11] MEDS: Enoxaparin Sodium 40 MG/0.4 ML SYRINGE SC SCH (08:42)
[2021-03-11] MEDS ORDERED: Dextrose 50% Abboject 50 ML SYRINGE SLOW IVP PRN (13:14)
[2021-03-11] MEDS ORDERED: Dextrose 5% in Water 1,000 ML IV PRN (13:14)
[2021-03-11] MEDS ORDERED: Methocarbamol 500 MG TAB PO PRN (13:15)
[2021-03-11 14:44] LABS: Anion Gap 11 mmol/L (10-20); BUN (Urea Nitrogen) Less than 4 mg/dL (9.8-20.1); Calc. Creatinine Clearance 113 mL/min (70-130); Calcium 8.2 mg/dL (7.8-10.44); Carbon Dioxide 18 mmol/L (23-31); Chloride 111 mmol/L (98-107); Glucose 210 mg/dL (80-115); Potassium 5.4 mmol/L (3.5-5.1); Sodium 135 mmol/L (136-145)
[2021-03-11] MEDS: Sodium Chloride 0.9% 1,000 ML IV SCH ×2 (19:40→19:48)
[2021-03-11] MEDS: Atorvastatin Calcium 40 MG TAB PO SCH (19:46)
[2021-03-11] MEDS: Gabapentin 400 MG CAP PO SCH (19:46)
[2021-03-11] MEDS ORDERED: Lantus 1000 UNITS/10 ML VIAL SC SCH (21:00)
[2021-03-11] MEDS ORDERED: Atorvastatin Calcium 40 MG TAB PO SCH (21:00)
[2021-03-12] MEDS: Sodium Chloride 0.9% 1,000 ML IV SCH ×2 (01:45→18:02)
[2021-03-12] MEDS: Levothyroxine Sodium 100 MCG TAB PO SCH (01:45)
[2021-03-12 04:39] LABS: #Eosinphils 0.3 thou/uL (0.0-0.7); #Lymphocytes 1.4 thou/uL (1.20-3.40); #Monocytes 0.4 thou/uL (0.11-0.59); %Basophils 0.4 % (0.0-1.0); %Eosinophils 7.8 % (0.0-10.0); %Lymphocytes 34.6 % (21.0-51.0); %Neutrophils 47.2 % (42.0-75.0); Mean Corpuscular HGB CONC 34.1 g/dL (32.0-36.0); Mean Corpuscular Hemoglobin 31.9 pg (27.0-31.0); Mean Corpuscular Volume 93.6 fL (78.0-98.0); Mean Platelet Volume 7.1 fL (7.4-10.4); Platelet Count 122 thou/uL (130-400); RBC Distribution Width 12.5 % (11.5-14.5); Red Blood Cell (RBC) Count 3.75 mill/uL (4.20-5.40); White Blood Cell (WBC) Count 4.1 thou/uL (4.8-10.8)
[2021-03-12 04:42] LABS: Hemoglobin A1c 11.8 % (4.0-6.0)
[2021-03-12 04:52] LABS: Anion Gap 9 mmol/L (10-20); BUN (Urea Nitrogen) Less than 4 mg/dL (9.8-20.1); Calc. Creatinine Clearance 119 mL/min (70-130); Calcium 8.2 mg/dL (7.8-10.44); Carbon Dioxide 21 mmol/L (23-31); Chloride 111 mmol/L (98-107); Glucose 195 mg/dL (80-115); Potassium 4.2 mmol/L (3.5-5.1); Sodium 137 mmol/L (136-145)
[2021-03-12] MEDS ORDERED: Lantus 1000 UNITS/10 ML VIAL SC SCH (09:00)
[2021-03-12] MEDS: Enoxaparin Sodium 40 MG/0.4 ML SYRINGE SC SCH (09:47)
[2021-03-12] MEDS: Clopidogrel Bisulfate 75 MG TAB PO SCH (09:47)
[2021-03-12] MEDS: Insulin Regular 300 UNITS/3 ML VIAL SC PRN ×2 (18:05→22:17)
[2021-03-12] MEDS ORDERED: metFORMIN 500 MG TAB PO SCH (21:00)
[2021-03-12] MEDS: Gabapentin 400 MG CAP PO SCH (22:16)
[2021-03-12] MEDS: Atorvastatin Calcium 40 MG TAB PO SCH (22:16)
[2021-03-12] MEDS: Lantus 1000 UNITS/10 ML VIAL SC SCH (22:17)
[2021-03-12] MEDS ORDERED: hydrALAZINE 20 MG/ML VIAL SLOW IVP SCH (22:30)
[2021-03-12] MEDS: HYDROcodone/Acetaminophen 5/325 mg Tablet PO PRN (22:36)
[2021-03-13] MEDS ORDERED: Diltiazem 125 MG in Sodium Chloride 0.9% 100 ML IVPB SCH (02:30)
[2021-03-13 02:33] LABS: Actual Bicarbonate (HCO3a) 24.5 mEq/L (22-28); Base Excess (BEa) 0.4 mEq/L (-2.0 to +3.0); Calcium, Ionized (arterial) 1.23 mmol/L (1.12-1.30); Carboxyhemoglobin (COHb) 1.3 gm% (0.0-3.0); Hemoglobin (Hb) 13.5 g/dL (12.0-16.0); O2 Tension (PaO2), arterial 68.2 mmHg (> 80.0); Potassium - ABG Lab 3.38 mmol/L (3.70-5.30); pH, Arterial 7.43 (7.35-7.45)
[2021-03-13 02:34] LABS: Puncture Site RBA
[2021-03-13] MEDS ORDERED: Enoxaparin Sodium 100 MG/ML SYRINGE SC SCH ×2 (02:45→15:00)
[2021-03-13 03:04] LABS: #Basophils 0.1 thou/uL (0.0-0.2); #Eosinphils 0.2 thou/uL (0.0-0.7); #Lymphocytes 1.8 thou/uL (1.20-3.40); #Monocytes 0.6 thou/uL (0.11-0.59); %Basophils 1.7 % (0.0-1.0); %Eosinophils 4.7 % (0.0-10.0); %Lymphocytes 38.1 % (21.0-51.0); %Monocytes 12.7 % (0.0-10.0); %Neutrophils 42.8 % (42.0-75.0); Hemoglobin 13.4 g/dL (12.0-16.0); Mean Corpuscular HGB CONC 35.9 g/dL (32.0-36.0); Mean Corpuscular Hemoglobin 33.2 pg (27.0-31.0); Mean Corpuscular Volume 92.6 fL (78.0-98.0); Mean Platelet Volume 6.4 fL (7.4-10.4); Platelet Count 139 thou/uL (130-400); RBC Distribution Width 12.4 % (11.5-14.5); Red Blood Cell (RBC) Count 4.05 mill/uL (4.20-5.40); White Blood Cell (WBC) Count 4.8 thou/uL (4.8-10.8)
[2021-03-13 03:14] LABS: Lactic Acid 1.5 mmol/L (0.5-2.2)
[2021-03-13 03:18] LABS: ALT (SGPT) 18 U/L (8-55); AST (SGOT) 18 U/L (5-34); Albumin 3.4 g/dL (3.4-4.8); Alkaline Phosphatase 71 U/L (40-110); Anion Gap 13 mmol/L (10-20); BUN (Urea Nitrogen) Less than 4 mg/dL (9.8-20.1); Bilirubin, Total 0.8 mg/dL (0.2-1.2); Calc. Creatinine Clearance 109 mL/min (70-130); Calcium 9.4 mg/dL (7.8-10.44); Carbon Dioxide 22 mmol/L (23-31); Chloride 107 mmol/L (98-107); Globulin 3.2 g/dL (2.4-3.5); Glucose 165 mg/dL (80-115); Potassium 3.5 mmol/L (3.5-5.1); Protein, Total 6.6 g/dL (5.8-8.1); Sodium 138 mmol/L (136-145)
[2021-03-13] MEDS: Levothyroxine Sodium 100 MCG TAB PO SCH (05:32)
[2021-03-13] MEDS: Sodium Chloride 0.9% 1,000 ML IV SCH ×2 (05:33→16:39)
[2021-03-13 08:03] LABS: Bacteria/HPF 1+ HPF (None Seen); Bilirubin Negative (Negative); Blood, Urine Negative (Negative); Clarity Clear (Clear); Glucose, Urine (Dipstick) 70 mg/dL (Negative); Ketone, Urine Negative (Negative); Leukocyte 25 Leu/uL (Negative); Nitrite Negative (Negative); Protein, Urine (Dipstick) Negative (Neg-Trace); RBC/HPF 0-3 HPF (0-3); Specific Gravity, Urine 1.035 (1.002-1.036); Squamous Epithelial None Seen HPF (0-3); Urobilinogen Normal mg/dL (Less than 2)
[2021-03-13 08:05] LABS: Urine Culture Reflex Yes Yes
[2021-03-13] MEDS: Clopidogrel Bisulfate 75 MG TAB PO SCH (09:17)
[2021-03-13] MEDS: Amiodarone 450 MG, Admixture Fee 1 EACH in Dextrose 5% in Water 250 ML IVPB SCH ×2 (09:17→17:23)
[2021-03-13] MEDS: Enoxaparin Sodium 100 MG/ML SYRINGE SC SCH ×2 (09:17→20:31)
[2021-03-13] MEDS: Lantus 1000 UNITS/10 ML VIAL SC SCH ×2 (09:18→20:34)
[2021-03-13] MEDS ORDERED: Iopamidol-370 76% 500 ML 1 ML ONE (09:58)
[2021-03-13] MEDS ORDERED: Potassium Chloride 20 MEQ TAB PO SCH (10:15)
[2021-03-13] MEDS: Insulin Regular 300 UNITS/3 ML VIAL SC PRN ×2 (11:29→17:24)
[2021-03-13] MEDS: metFORMIN 500 MG TAB PO SCH (17:24)
[2021-03-13] MEDS: Atorvastatin Calcium 40 MG TAB PO SCH (20:31)
[2021-03-13] MEDS: HYDROcodone/Acetaminophen 5/325 mg Tablet PO PRN (21:50)
[2021-03-14] MEDS: Sodium Chloride 0.9% 1,000 ML IV SCH ×3 (02:23→23:05)
[2021-03-14 03:48] LABS: Anion Gap 13 mmol/L (10-20); BUN (Urea Nitrogen) 5 mg/dL (9.8-20.1); Calc. Creatinine Clearance 101 mL/min (70-130); Calcium 8.2 mg/dL (7.8-10.44); Carbon Dioxide 20 mmol/L (23-31); Chloride 108 mmol/L (98-107); Glucose 272 mg/dL (80-115); Potassium 3.9 mmol/L (3.5-5.1); Sodium 137 mmol/L (136-145)
[2021-03-14] MEDS: Levothyroxine Sodium 100 MCG TAB PO SCH (07:09)
[2021-03-14] MEDS: Insulin Regular 300 UNITS/3 ML VIAL SC PRN ×2 (07:10→16:38)
[2021-03-14] MEDS: Amiodarone 450 MG, Admixture Fee 1 EACH in Dextrose 5% in Water 250 ML IVPB SCH (08:08)
[2021-03-14] MEDS: Enoxaparin Sodium 100 MG/ML SYRINGE SC SCH ×2 (08:08→20:32)
[2021-03-14] MEDS: Clopidogrel Bisulfate 75 MG TAB PO SCH (08:10)
[2021-03-14] MEDS: Lantus 1000 UNITS/10 ML VIAL SC SCH ×2 (08:11→20:41)
[2021-03-14] MEDS: metFORMIN 500 MG TAB PO SCH (16:38)
[2021-03-14] MEDS: Atorvastatin Calcium 40 MG TAB PO SCH (20:32)
[2021-03-14] MEDS: Benzonatate 100 MG CAP PO PRN (20:32)
[2021-03-14] MEDS: HYDROcodone/Acetaminophen 5/325 mg Tablet PO PRN (20:36)
[2021-03-14] MEDS: Metoprolol Tartrate 25 MG TAB PO SCH (20:52)
[2021-03-15 04:09] LABS: Anion Gap 11 mmol/L (10-20); BUN (Urea Nitrogen) 4 mg/dL (9.8-20.1); Calc. Creatinine Clearance 125 mL/min (70-130); Calcium 8.3 mg/dL (7.8-10.44); Carbon Dioxide 25 mmol/L (23-31); Chloride 109 mmol/L (98-107); Glucose 74 mg/dL (80-115); Potassium 3.2 mmol/L (3.5-5.1); Sodium 142 mmol/L (136-145)
[2021-03-15] MEDS: Levothyroxine Sodium 100 MCG TAB PO SCH (06:15)
[2021-03-15] MEDS ORDERED: Potassium Chloride 20 MEQ TAB PO SCH (06:15)
[2021-03-15] MEDS: Lantus 1000 UNITS/10 ML VIAL SC SCH ×2 (08:29→23:59)
[2021-03-15] MEDS: Enoxaparin Sodium 100 MG/ML SYRINGE SC SCH ×2 (08:29→20:11)
[2021-03-15] MEDS: Clopidogrel Bisulfate 75 MG TAB PO SCH (08:30)
[2021-03-15] MEDS: Benzonatate 100 MG CAP PO PRN (08:30)
[2021-03-15] MEDS: Metoprolol Tartrate 25 MG TAB PO SCH ×3 (08:30→20:12)
[2021-03-15] MEDS: Amlodipine 5 MG TAB PO SCH (08:30)
[2021-03-15] MEDS: Sodium Chloride 0.9% 1,000 ML IV SCH ×2 (09:13→17:18)
[2021-03-15] MEDS ORDERED: hydrALAZINE 20 MG/ML VIAL ONE (12:59)
[2021-03-15] MEDS ORDERED: hydrALAZINE 20 MG/ML VIAL SLOW IVP PRN ×2 (14:47→16:16)
[2021-03-15] MEDS: metFORMIN 500 MG TAB PO SCH (17:18)
[2021-03-15] MEDS: HYDROcodone/Acetaminophen 5/325 mg Tablet PO PRN (20:12)
[2021-03-15] MEDS: Atorvastatin Calcium 40 MG TAB PO SCH (20:12)
[2021-03-16 05:25] LABS: Anion Gap 10 mmol/L (10-20); BUN (Urea Nitrogen) Less than 4 mg/dL (9.8-20.1); Calc. Creatinine Clearance 129 mL/min (70-130); Calcium 8.7 mg/dL (7.8-10.44); Carbon Dioxide 24 mmol/L (23-31); Chloride 107 mmol/L (98-107); Glucose 72 mg/dL (80-115); Potassium 3.3 mmol/L (3.5-5.1); Sodium 138 mmol/L (136-145)
[2021-03-16] MEDS: Levothyroxine Sodium 100 MCG TAB PO SCH (05:51)
[2021-03-16] MEDS ORDERED: Potassium Chloride 20 MEQ TAB PO SCH (06:30)
[2021-03-16] MEDS: Sodium Chloride 0.9% 1,000 ML IV SCH ×2 (07:30→16:16)
[2021-03-16] MEDS: Enoxaparin Sodium 100 MG/ML SYRINGE SC SCH (09:39)
[2021-03-16] MEDS: Clopidogrel Bisulfate 75 MG TAB PO SCH (09:41)
[2021-03-16] MEDS: Amlodipine 5 MG TAB PO SCH (09:41)
[2021-03-16] MEDS: Lantus 1000 UNITS/10 ML VIAL SC SCH (09:42)
[2021-03-16] MEDS: Metoprolol Tartrate 25 MG TAB PO SCH (09:42)
[2021-03-16 16:11] VITALS: BP 183/83; TEMP 98.1
== END 2021-03-16 15:40 | disposition home or self-care (01) | DRG 637 ==
LOC: ERS 18:08 → IMCU/EMU 19:59 → 2NO 03-15 14:11
PROVIDERS: ADMIT Student in an Organized Health Care Education/Training Program; ATTEND Internal Medicine
DX: E11.01 Type 2 diabetes mellitus with hyperosmolarity with coma (principal); G93.41 Metabolic encephalopathy; I69.954 Hemiplegia and hemiparesis following unspecified cerebrovascular disease affecting left non-dominant side; I16.1 Hypertensive emergency; E87.2 Acidosis; Z20.822 Contact with and (suspected) exposure to COVID-19; I25.10 Atherosclerotic heart disease of native coronary artery without angina pectoris; I10 Essential (primary) hypertension; E03.9 Hypothyroidism, unspecified; G51.0 Bell's palsy; F31.9 Bipolar disorder, unspecified; K74.60 Unspecified cirrhosis of liver; B18.2 Chronic viral hepatitis C; I16.0 Hypertensive urgency; E86.0 Dehydration; E11.69 Type 2 diabetes mellitus with other specified complication; G93.89 Other specified disorders of brain; E78.5 Hyperlipidemia, unspecified; G47.33 Obstructive sleep apnea (adult) (pediatric); I48.0 Paroxysmal atrial fibrillation; Z88.2 Allergy status to sulfonamides; Z88.8 Allergy status to other drugs, medicaments and biological substances; I25.2 Old myocardial infarction; Z95.5 Presence of coronary angioplasty implant and graft; Z90.710 Acquired absence of both cervix and uterus; Z90.49 Acquired absence of other specified parts of digestive tract; Z98.890 Other specified postprocedural states; Z88.1 Allergy status to other antibiotic agents; Z79.899 Other long term (current) drug therapy; Z79.4 Long term (current) use of insulin; Z68.37 Body mass index [BMI] 37.0-37.9, adult
CPT/HCPCS: 36415; 36416; 36600; 51701; 70450; 70551; 71045; 71275; 74230; 80048; 80053; 80061; 81001; 81003; 82010; 82140; 82550; 82805; 83036; 83605; 83690; 83880; 84443; 84484; 85025; 87040; 87077; 87086; 87186; 93005; 93010; 93306; 93880; 94760; 95712; 95819; 95957; J0282; J0360; J1650; J1815; J3480; J3490; J7070; Q9967; U0002

== ENCOUNTER 2021-03-20 20:17 | Observation (INO) | payer MEDICARE, MEDICAID ==
[2021-03-20 23:41] VITALS: BMI 34.9
[2021-03-21] MEDS ORDERED: Ibuprofen 600 MG TAB PO PRN (02:47)
[2021-03-21] MEDS ORDERED: Dextrose 50% Abboject 50 ML SYRINGE SLOW IVP PRN ×2 (02:50→04:05)
[2021-03-21] MEDS ORDERED: Dextrose 5% in Water 1,000 ML IV PRN ×2 (02:50→04:05)
[2021-03-21] MEDS ORDERED: HumaLOG 300 UNITS/3 ML VIAL SC PRN (04:05)
[2021-03-21] MEDS: Amlodipine 5 MG TAB PO SCH (08:39)
[2021-03-21] MEDS: Clopidogrel Bisulfate 75 MG TAB PO SCH (08:42)
[2021-03-21] MEDS: Metoprolol Tartrate 25 MG TAB PO SCH ×2 (08:42→21:53)
[2021-03-21] MEDS: Levothyroxine Sodium 100 MCG TAB PO SCH (08:48)
[2021-03-21] MEDS: HumaLOG 300 UNITS/3 ML VIAL SC PRN ×2 (11:16→17:06)
[2021-03-21 11:49] LABS: SARS-CoV-2 PCR by NAA Not Detected (NotDetected)
[2021-03-21 13:49] LABS: INR-International Normal Ratio 1.1
[2021-03-21 13:57] LABS: ALT (SGPT) 33 U/L (8-55); AST (SGOT) 42 U/L (5-34); Albumin 3.4 g/dL (3.4-4.8); Alkaline Phosphatase 60 U/L (40-110); Anion Gap 12 mmol/L (10-20); BUN (Urea Nitrogen) 5 mg/dL (9.8-20.1); Bilirubin, Total 0.5 mg/dL (0.2-1.2); Calc. Creatinine Clearance 93 mL/min (70-130); Calcium 8.8 mg/dL (7.8-10.44); Carbon Dioxide 25 mmol/L (23-31); Chloride 107 mmol/L (98-107); Globulin 2.8 g/dL (2.4-3.5); Glucose 149 mg/dL (80-115); Potassium 3.7 mmol/L (3.5-5.1); Protein, Total 6.2 g/dL (5.8-8.1); Sodium 140 mmol/L (136-145)
[2021-03-21] MEDS ORDERED: Lantus 1000 UNITS/10 ML VIAL SC SCH (21:00)
[2021-03-21] MEDS ORDERED: Atorvastatin Calcium 40 MG TAB PO SCH (21:00)
[2021-03-21] MEDS ORDERED: Gabapentin 400 MG CAP PO SCH (21:00)
[2021-03-22] MEDS: Amlodipine 5 MG TAB PO SCH (10:30)
[2021-03-22] MEDS: Clopidogrel Bisulfate 75 MG TAB PO SCH (10:31)
[2021-03-22] MEDS: Levothyroxine Sodium 100 MCG TAB PO SCH (10:31)
[2021-03-22] MEDS: Metoprolol Tartrate 25 MG TAB PO SCH (10:31)
[2021-03-22 14:49] VITALS: BP 85/65; TEMP 97.6
== END 2021-03-22 16:23 | disposition home health service (06) ==
LOC: 2SE 20:17
PROVIDERS: ADMIT Internal Medicine; ATTEND Internal Medicine
DX: G93.41 Metabolic encephalopathy (principal); E11.9 Type 2 diabetes mellitus without complications; I10 Essential (primary) hypertension; E03.9 Hypothyroidism, unspecified; K74.60 Unspecified cirrhosis of liver; I25.2 Old myocardial infarction; E78.5 Hyperlipidemia, unspecified; E66.9 Obesity, unspecified; Z68.35 Body mass index [BMI] 35.0-35.9, adult; Z86.73 Personal history of transient ischemic attack (TIA), and cerebral infarction without residual deficits; Z79.02 Long term (current) use of antithrombotics/antiplatelets; Z79.4 Long term (current) use of insulin; Z79.899 Other long term (current) drug therapy; Z88.2 Allergy status to sulfonamides; Z88.6 Allergy status to analgesic agent; Z20.822 Contact with and (suspected) exposure to COVID-19
CPT/HCPCS: 70551; 80053; 82140; 82962 ×3; 85610; 95712; 95819; 95957; U0003; U0005; 36415; 36416; G0378; J1815

== ENCOUNTER 2021-04-16 12:37 | Observation (INO) | payer MEDICARE, MEDICAID ==
[2021-04-16] MEDS ORDERED: Dextrose 50% Abboject 50 ML SYRINGE SLOW IVP PRN (15:14)
[2021-04-16] MEDS ORDERED: HumaLOG 300 UNITS/3 ML VIAL SC PRN ×2 (15:14)
[2021-04-16] MEDS ORDERED: Nitroglycerin 0.4 MG TAB (25 Tab Bottle) SL PRN (15:14)
[2021-04-16] MEDS ORDERED: Dextrose 5% in Water 1,000 ML IV PRN (15:14)
[2021-04-16] MEDS ORDERED: Ketorolac Tromethamine 30 MG/ML VIAL IVP PRN (16:11)
[2021-04-16] MEDS ORDERED: HYDROcodone/Acetaminophen 10/325 mg Tablet PO PRN (16:19)
[2021-04-16] MEDS ORDERED: Acetaminophen 325 MG TAB ONE ×2 (18:09→18:10)
[2021-04-16 18:40] VITALS: BMI 35.9
[2021-04-16] MEDS: Metoprolol Tartrate 25 MG TAB PO SCH (21:50)
[2021-04-16] MEDS: Famotidine 20 MG TAB PO SCH (21:50)
[2021-04-16] MEDS: Atorvastatin Calcium 40 MG TAB PO SCH (21:50)
[2021-04-16] MEDS: Lantus 1000 UNITS/10 ML VIAL SC SCH (21:51)
[2021-04-16] MEDS ORDERED: Melatonin 3 MG TAB PO PRN (22:42)
[2021-04-17 04:51] LABS: #Eosinphils 0.3 thou/uL (0.0-0.7); #Monocytes 0.4 thou/uL (0.11-0.59); #Neutrophils 2.1 thou/uL (1.40-6.50); %Basophils 0.4 % (0.0-1.0); %Lymphocytes 41.2 % (21.0-51.0); %Monocytes 8.2 % (0.0-10.0); %Neutrophils 43.3 % (42.0-75.0); Hemoglobin 12.1 g/dL (12.0-16.0); Mean Corpuscular Hemoglobin 33.1 pg (27.0-31.0); Mean Corpuscular Volume 91.8 fL (78.0-98.0); Mean Platelet Volume 6.6 fL (7.4-10.4); Platelet Count 119 thou/uL (130-400); Red Blood Cell (RBC) Count 3.67 mill/uL (4.20-5.40); White Blood Cell (WBC) Count 4.9 thou/uL (4.8-10.8)
[2021-04-17 04:53] LABS: Hemoglobin A1c 8.4 % (4.0-6.0)
[2021-04-17 05:12] LABS: ALT (SGPT) 41 U/L (8-55); AST (SGOT) 34 U/L (5-34); Albumin 3.5 g/dL (3.4-4.8); Alkaline Phosphatase 67 U/L (40-110); Anion Gap 12 mmol/L (10-20); BUN (Urea Nitrogen) 10 mg/dL (9.8-20.1); Bilirubin, Total 0.4 mg/dL (0.2-1.2); Calc. Creatinine Clearance 108 mL/min (70-130); Calcium 9.1 mg/dL (7.8-10.44); Carbon Dioxide 23 mmol/L (23-31); Chloride 108 mmol/L (98-107); Globulin 2.9 g/dL (2.4-3.5); Glucose 71 mg/dL (80-115); Potassium 3.4 mmol/L (3.5-5.1); Protein, Total 6.4 g/dL (5.8-8.1); Sodium 140 mmol/L (136-145)
[2021-04-17] MEDS: Levothyroxine Sodium 100 MCG TAB PO SCH (06:27)
[2021-04-17] MEDS ORDERED: Potassium Chloride 20 MEQ TAB PO SCH ×2 (07:30→12:30)
[2021-04-17] MEDS: Metoprolol Tartrate 25 MG TAB PO SCH ×2 (07:41→21:00)
[2021-04-17] MEDS: Amlodipine 5 MG TAB PO SCH (07:42)
[2021-04-17] MEDS ORDERED: Methocarbamol 500 MG TAB PO PRN (07:48)
[2021-04-17] MEDS ORDERED: Fioricet 325/50/40 mg Tablet PO PRN (07:48)
[2021-04-17] MEDS: Potassium Chloride 20 MEQ in Premix Bag 1 BAG IVPB SCH ×3 (08:05→12:25)
[2021-04-17] MEDS ORDERED: ADENOSINE 60 MG/20 ML VIAL ONE (09:18)
[2021-04-17] MEDS: Clopidogrel Bisulfate 75 MG TAB PO SCH (11:59)
[2021-04-17] MEDS: Enoxaparin Sodium 40 MG/0.4 ML SYRINGE SC SCH (12:00)
[2021-04-17] MEDS: Gabapentin 300 MG CAP PO SCH ×2 (12:00→15:49)
[2021-04-17] MEDS: Famotidine 20 MG TAB PO SCH ×2 (12:00→20:58)
[2021-04-17 13:11] LABS: SARS-CoV-2 PCR by NAA Not Detected (NotDetected)
[2021-04-17] MEDS: Atorvastatin Calcium 40 MG TAB PO SCH (20:57)
[2021-04-17] MEDS: Lantus 1000 UNITS/10 ML VIAL SC SCH (20:59)
[2021-04-17] MEDS ORDERED: Gabapentin 300 MG CAP PO SCH (21:00)
[2021-04-18] MEDS: Levothyroxine Sodium 100 MCG TAB PO SCH (05:43)
[2021-04-18 09:22] VITALS: TEMP 97.7
[2021-04-18] MEDS: Famotidine 20 MG TAB PO SCH (09:24)
[2021-04-18] MEDS: Gabapentin 300 MG CAP PO SCH (09:25)
[2021-04-18] MEDS: Metoprolol Tartrate 25 MG TAB PO SCH (09:25)
[2021-04-18] MEDS: Amlodipine 5 MG TAB PO SCH (09:25)
[2021-04-18] MEDS: Clopidogrel Bisulfate 75 MG TAB PO SCH (09:26)
[2021-04-18] MEDS: Enoxaparin Sodium 40 MG/0.4 ML SYRINGE SC SCH (09:34)
[2021-04-18 11:51] VITALS: BP 114/61
== END 2021-04-18 13:00 | disposition home or self-care (01) ==
LOC: ERS 12:37 → ERHOLD 14:45 → 2NO 18:35
PROVIDERS: ADMIT Family Medicine; ATTEND Internal Medicine
DX: R07.89 Other chest pain (principal); I48.91 Unspecified atrial fibrillation; I10 Essential (primary) hypertension; I25.2 Old myocardial infarction; G89.29 Other chronic pain; M25.512 Pain in left shoulder; K74.60 Unspecified cirrhosis of liver; G47.33 Obstructive sleep apnea (adult) (pediatric); E11.9 Type 2 diabetes mellitus without complications; E78.5 Hyperlipidemia, unspecified; E03.9 Hypothyroidism, unspecified; I69.354 Hemiplegia and hemiparesis following cerebral infarction affecting left non-dominant side; E66.9 Obesity, unspecified; Z68.35 Body mass index [BMI] 35.0-35.9, adult; Z20.822 Contact with and (suspected) exposure to COVID-19; Z79.4 Long term (current) use of insulin; Z79.899 Other long term (current) drug therapy; Z88.2 Allergy status to sulfonamides; Z88.6 Allergy status to analgesic agent
CPT/HCPCS: 73030; 78452; 82962 ×3; 83036; 84484; 93005; 93017; 94760 ×2; 99285; A9500; U0003; U0005; 36415; 36416; 80053; 84443; 85025; 96372; G0378; J0153; J1650; J1815; J3480

== ENCOUNTER 2021-10-24 10:04 | Outpatient (CLI) | payer MEDICARE, MEDICAID | END 2021-10-24 10:05 | disposition home or self-care (01) | LOC: MRI 10:04 | PROVIDERS: ATTEND Family Medicine | DX: G89.4 Chronic pain syndrome (principal); M47.812 Spondylosis without myelopathy or radiculopathy, cervical region | CPT/HCPCS: 72141 ==

== ENCOUNTER 2022-02-18 09:22 | Outpatient (CLI) | payer MEDICARE, OTHER | END 2022-02-18 09:23 | disposition home or self-care (01) | LOC: BICMAMMO 09:22 | PROVIDERS: ATTEND Family Medicine | DX: N63.10 Unspecified lump in the right breast, unspecified quadrant (principal); Z80.3 Family history of malignant neoplasm of breast | CPT/HCPCS: 76642; 77066; G0279 ==

== ENCOUNTER 2023-01-14 13:32 | Inpatient (IN) | payer OTHER, MEDICAID ==
[2023-01-14 14:07] LABS: #Lymphocytes 1.3 thou/uL (1.20-3.40); %Basophils 0.1 % (0.0-1.0); %Eosinophils 0.1 % (0.0-10.0); %Lymphocytes 7.2 % (21.0-51.0); %Monocytes 5.3 % (0.0-10.0); %Neutrophils 87.2 % (42.0-75.0); Hemoglobin 11.5 g/dL (12.0-16.0); Mean Corpuscular HGB CONC 32.8 g/dL (32.0-36.0); Mean Corpuscular Hemoglobin 32.9 pg (27.0-31.0); Mean Platelet Volume 7.3 fL (7.4-10.4); Platelet Count 162 10x3/uL (130-400); RBC Distribution Width 13.4 % (11.5-14.5); Red Blood Cell (RBC) Count 3.49 mill/uL (4.20-5.40); White Blood Cell (WBC) Count 18.3 10x3/uL (4.8-10.8)
[2023-01-14 14:19] LABS: INR-International Normal Ratio 1.3
[2023-01-14 14:20] LABS: PTT 32.5 sec (22.9-36.1)
[2023-01-14 14:27] LABS: ALT (SGPT) 15 U/L (8-55); AST (SGOT) 33 U/L (5-34); Albumin 2.9 g/dL (3.4-4.8); Alkaline Phosphatase 50 U/L (40-110); Anion Gap 12 mmol/L (10-20); BUN (Urea Nitrogen) 31 mg/dL (9.8-20.1); Bilirubin, Total 0.3 mg/dL (0.2-1.2); Calc. Creatinine Clearance 0 mL/min (70-130); Calcium 7.8 mg/dL (7.8-10.44); Carbon Dioxide 20 mmol/L (23-31); Chloride 106 mmol/L (98-107); Estimated GFR 39; Globulin 2.5 g/dL (2.4-3.5); Glucose 101 mg/dL (83-110); Potassium 4.6 mmol/L (3.5-5.1); Protein, Total 5.4 g/dL (5.8-8.1); Sodium 133 mmol/L (136-145)
[2023-01-14] MEDS ORDERED: Cefepime 2 GM VIAL ONE (14:57)
[2023-01-14] MEDS ORDERED: Vancomycin 1 GM/200 ML (FROZEN) BAG ONE ×2 (14:57→16:14)
[2023-01-14] MEDS ORDERED: Digoxin 0.5 MG/2 ML AMP ONE (14:57)
[2023-01-14] MEDS ORDERED: Acetaminophen 500 MG TAB ONE (14:57)
[2023-01-14] MEDS ORDERED: Acetaminophen 325 MG TAB PO PRN (16:13)
[2023-01-14 16:15] LABS: CK (CPK) 976 U/L (29-168); Magnesium 1.5 mg/dL (1.6-2.6)
[2023-01-14 17:17] LABS: SARS-CoV-2 NAA Rapid Test Not Detected (NotDetected)
[2023-01-14] MEDS ORDERED: NOREPINEPHRINE 8 MG/250 ML-D5W 250 ML ONE (17:20)
[2023-01-14] MEDS ORDERED: NOREPINEPHRINE 8 MG/250 ML-D5W 250 ML IVPB SCH (17:30)
[2023-01-14] MEDS ORDERED: Magnesium 2 GM/50 ML(in water) 2 GM in Premix Bag 1 BAG IVPB SCH (18:00)
[2023-01-14] MEDS ORDERED: Vancomycin 1 GM in Premix Bag 1 BAG IVPB SCH (18:15)
[2023-01-14 19:11] LABS: Bacteria/HPF 4+ HPF (None Seen); Bilirubin Negative (Negative); Blood, Urine Negative (Negative); Clarity Clear (Clear); Glucose, Urine (Dipstick) Greater than 1000 mg/dL (Negative); Ketone, Urine Negative (Negative); Leukocyte Negative Leu/uL (Negative); Nitrite 1+ (Negative); Protein, Urine (Dipstick) Negative (Neg-Trace); RBC/HPF 0-3 HPF (0-3); Specific Gravity, Urine 1.032 (1.002-1.036); Squamous Epithelial None Seen HPF (0-3); Urobilinogen Normal mg/dL (Less than 2); WBC/HPF 0-3 HPF (0-3); pH, Urine 5.5 (5.0-9.0)
[2023-01-14] MEDS ORDERED: Dextrose 5% in Water 1,000 ML IV PRN (20:28)
[2023-01-14] MEDS ORDERED: Dextrose 50% Abboject 50 ML SYRINGE SLOW IVP PRN (20:28)
[2023-01-14] MEDS ORDERED: HumaLOG 300 UNITS/3 ML VIAL SC PRN (20:28)
[2023-01-14] MEDS ORDERED: Sodium Chloride 0.9% 1,000 ML IV SCH (20:45)
[2023-01-14] MEDS: QUEtiapine 100 MG TAB PO SCH ×2 (21:00→23:48)
[2023-01-14] MEDS: Mirtazapine 30 MG TAB PO SCH ×2 (21:00→23:46)
[2023-01-14 21:36] LABS: Troponin I 4.189 ng/mL (< 0.028)
[2023-01-14 22:32] LABS: Legionella Urinary Ag Negative (Negative)
[2023-01-14 22:33] LABS: Strep pneumo Urine Ag NEGATIVE (NEGATIVE)
[2023-01-15 00:15] LABS: Critical Call Chem Troponin I RESULT DECREASING; Troponin I 3.412 ng/mL (< 0.028)
[2023-01-15] MEDS: Cefepime 1 GM in Sodium Chloride 0.9% 100 ML IVPB SCH ×2 (02:33→14:20)
[2023-01-15 04:40] LABS: #Basophils 0.1 thou/uL (0.0-0.2); #Eosinphils 0.1 thou/uL (0.0-0.7); #Lymphocytes 1.7 thou/uL (1.20-3.40); #Monocytes 0.5 thou/uL (0.11-0.59); #Neutrophils 4.7 thou/uL (1.40-6.50); %Basophils 1.5 % (0.0-1.0); %Eosinophils 1.2 % (0.0-10.0); %Lymphocytes 23.4 % (21.0-51.0); %Neutrophils 66.8 % (42.0-75.0); Mean Corpuscular HGB CONC 32.8 g/dL (32.0-36.0); Mean Corpuscular Hemoglobin 33.2 pg (27.0-31.0); Mean Platelet Volume 7.3 fL (7.4-10.4); Platelet Count 113 10x3/uL (130-400); RBC Distribution Width 13.5 % (11.5-14.5); Red Blood Cell (RBC) Count 3.31 mill/uL (4.20-5.40)
[2023-01-15 04:55] LABS: ALT (SGPT) 18 U/L (8-55); AST (SGOT) 58 U/L (5-34); Alkaline Phosphatase 46 U/L (40-110); Anion Gap 11 mmol/L (10-20); BUN (Urea Nitrogen) 27 mg/dL (9.8-20.1); Bilirubin, Total 0.4 mg/dL (0.2-1.2); Calc. Creatinine Clearance 73 mL/min (70-130); Calcium 8.1 mg/dL (7.8-10.44); Carbon Dioxide 27 mmol/L (23-31); Chloride 105 mmol/L (98-107); Estimated GFR 56; Globulin 2.7 g/dL (2.4-3.5); Glucose 102 mg/dL (83-110); Magnesium 2.4 mg/dL (1.6-2.6); Potassium 4.3 mmol/L (3.5-5.1); Protein, Total 5.7 g/dL (5.8-8.1); Sodium 139 mmol/L (136-145)
[2023-01-15] MEDS: Levothyroxine 150 MCG TAB PO SCH (06:38)
[2023-01-15] MEDS: Pantoprazole 40 MG VIAL IVP SCH (08:04)
[2023-01-15] MEDS: Citalopram 20 MG TAB PO SCH (08:06)
[2023-01-15] MEDS: Ezetimibe 10 MG TAB PO SCH (08:06)
[2023-01-15] MEDS ORDERED: FLU VACC QS2022-23(65YR UP)/PF 240 MCG/0.7 ML SYRINGE IM ONE (09:00)
[2023-01-15] MEDS ORDERED: Clopidogrel Bisulfate 75 MG TAB PO SCH (09:00)
[2023-01-15 11:27] VITALS: BMI 39.9
[2023-01-15] MEDS ORDERED: Vancomycin 1 GM in Premix Bag 1 BAG IVPB SCH (16:00)
[2023-01-15] MEDS: Arformoterol 15 MCG/2 ML NEB NEB SCH (19:03)
[2023-01-15] MEDS: QUEtiapine 100 MG TAB PO SCH (21:16)
[2023-01-16] MEDS: Cefepime 1 GM in Sodium Chloride 0.9% 100 ML IVPB SCH (02:00)
[2023-01-16 04:52] LABS: #Eosinphils 0.1 thou/uL (0.0-0.7); #Lymphocytes 1.3 thou/uL (1.20-3.40); #Monocytes 0.6 thou/uL (0.11-0.59); #Neutrophils 4.1 thou/uL (1.40-6.50); %Basophils 0.6 % (0.0-1.0); %Eosinophils 2.2 % (0.0-10.0); %Lymphocytes 20.9 % (21.0-51.0); %Monocytes 9.2 % (0.0-10.0); Hemoglobin 10.6 g/dL (12.0-16.0); Mean Corpuscular HGB CONC 33.5 g/dL (32.0-36.0); Mean Corpuscular Hemoglobin 33.4 pg (27.0-31.0); Mean Corpuscular Volume 99.8 fl (78.0-98.0); Mean Platelet Volume 7.5 fL (7.4-10.4); Platelet Count 117 10x3/uL (130-400); RBC Distribution Width 13.2 % (11.5-14.5); Red Blood Cell (RBC) Count 3.16 mill/uL (4.20-5.40); White Blood Cell (WBC) Count 6.1 10x3/uL (4.8-10.8)
[2023-01-16 05:06] LABS: Anion Gap 11 mmol/L (10-20); BUN (Urea Nitrogen) 16 mg/dL (9.8-20.1); Calc. Creatinine Clearance 102 mL/min (70-130); Calcium 8.5 mg/dL (7.8-10.44); Carbon Dioxide 29 mmol/L (23-31); Chloride 102 mmol/L (98-107); Estimated GFR 82; Glucose 75 mg/dL (83-110); Potassium 4.4 mmol/L (3.5-5.1); Sodium 138 mmol/L (136-145)
[2023-01-16] MEDS: Levothyroxine 150 MCG TAB PO SCH (06:19)
[2023-01-16] MEDS: Arformoterol 15 MCG/2 ML NEB NEB SCH ×2 (08:00→18:43)
[2023-01-16] MEDS: Citalopram 20 MG TAB PO SCH (09:20)
[2023-01-16] MEDS: Ezetimibe 10 MG TAB PO SCH (09:20)
[2023-01-16] MEDS: Pantoprazole 40 MG VIAL IVP SCH (09:20)
[2023-01-16] MEDS ORDERED: Meropenem 1 GM in Sodium Chloride 0.9% 100 ML IVPB SCH (13:00)
[2023-01-16] MEDS ORDERED: Cefepime 2 GM in Sodium Chloride 0.9% 100 ML IVPB SCH (14:00)
[2023-01-16] MEDS: QUEtiapine 100 MG TAB PO SCH (21:01)
[2023-01-16] MEDS: Atorvastatin Calcium 20 MG TAB PO SCH (21:01)
[2023-01-16] MEDS: Meropenem 1 GM in Sodium Chloride 0.9% 100 ML IVPB SCH (21:02)
[2023-01-17] MEDS: Meropenem 1 GM in Sodium Chloride 0.9% 100 ML IVPB SCH ×3 (04:23→21:06)
[2023-01-17] MEDS: Levothyroxine 150 MCG TAB PO SCH (04:23)
[2023-01-17] MEDS: Arformoterol 15 MCG/2 ML NEB NEB SCH ×2 (07:57→18:30)
[2023-01-17] MEDS: Citalopram 20 MG TAB PO SCH (09:28)
[2023-01-17] MEDS: Ezetimibe 10 MG TAB PO SCH (09:28)
[2023-01-17] MEDS: QUEtiapine 100 MG TAB PO SCH (21:05)
[2023-01-17] MEDS: Atorvastatin Calcium 20 MG TAB PO SCH (21:05)
[2023-01-18] MEDS: Levothyroxine 150 MCG TAB PO SCH (05:02)
[2023-01-18] MEDS: Meropenem 1 GM in Sodium Chloride 0.9% 100 ML IVPB SCH ×3 (05:02→20:55)
[2023-01-18] MEDS: Arformoterol 15 MCG/2 ML NEB NEB SCH ×2 (08:09→19:37)
[2023-01-18] MEDS: Ezetimibe 10 MG TAB PO SCH (10:43)
[2023-01-18] MEDS: Citalopram 20 MG TAB PO SCH (10:43)
[2023-01-18 17:03] LABS: #Eosinphils 0.2 thou/uL (0.0-0.7); #Lymphocytes 1.3 thou/uL (1.20-3.40); #Monocytes 0.5 thou/uL (0.11-0.59); #Neutrophils 2.9 thou/uL (1.40-6.50); %Basophils 0.9 % (0.0-1.0); %Eosinophils 3.8 % (0.0-10.0); %Lymphocytes 26.7 % (21.0-51.0); %Monocytes 10.3 % (0.0-10.0); %Neutrophils 58.4 % (42.0-75.0); Hemoglobin 12.8 g/dL (12.0-16.0); Mean Corpuscular Hemoglobin 33.1 pg (27.0-31.0); Mean Corpuscular Volume 97.4 fl (78.0-98.0); Mean Platelet Volume 7.3 fL (7.4-10.4); Platelet Count 171 10x3/uL (130-400); RBC Distribution Width 13.3 % (11.5-14.5); Red Blood Cell (RBC) Count 3.86 mill/uL (4.20-5.40)
[2023-01-18 17:24] LABS: Anion Gap 12 mmol/L (10-20); BUN (Urea Nitrogen) 16 mg/dL (9.8-20.1); Calc. Creatinine Clearance 93 mL/min (70-130); Calcium 9.4 mg/dL (7.8-10.44); Carbon Dioxide 27 mmol/L (23-31); Chloride 105 mmol/L (98-107); Estimated GFR 74; Glucose 185 mg/dL (83-110); Potassium 5.3 mmol/L (3.5-5.1); Sodium 139 mmol/L (136-145)
[2023-01-18] MEDS: HumaLOG 300 UNITS/3 ML VIAL SC PRN (17:28)
[2023-01-18] MEDS: QUEtiapine 100 MG TAB PO SCH (20:54)
[2023-01-18] MEDS: Apixaban 5 MG TAB PO SCH (20:54)
[2023-01-18] MEDS: Atorvastatin Calcium 20 MG TAB PO SCH (20:55)
[2023-01-18] MEDS ORDERED: Saccharomyces boulardii 250 MG CAP PO SCH (21:00)
[2023-01-18] MEDS ORDERED: Furosemide 20 MG TAB PO SCH (21:00)
[2023-01-19] MEDS: Meropenem 1 GM in Sodium Chloride 0.9% 100 ML IVPB SCH ×2 (05:14→12:49)
[2023-01-19] MEDS: Levothyroxine 150 MCG TAB PO SCH (05:14)
[2023-01-19 05:28] LABS: Anion Gap 11 mmol/L (10-20); BUN (Urea Nitrogen) 16 mg/dL (9.8-20.1); Calc. Creatinine Clearance 104 mL/min (70-130); Calcium 8.8 mg/dL (7.8-10.44); Carbon Dioxide 24 mmol/L (23-31); Chloride 105 mmol/L (98-107); Estimated GFR 85; Glucose 169 mg/dL (83-110); Potassium 3.9 mmol/L (3.5-5.1); Sodium 136 mmol/L (136-145)
[2023-01-19] MEDS: HumaLOG 300 UNITS/3 ML VIAL SC PRN ×3 (06:34→17:53)
[2023-01-19] MEDS: Arformoterol 15 MCG/2 ML NEB NEB SCH (07:30)
[2023-01-19] MEDS: Citalopram 20 MG TAB PO SCH (08:57)
[2023-01-19] MEDS: Apixaban 5 MG TAB PO SCH (08:57)
[2023-01-19] MEDS: Ezetimibe 10 MG TAB PO SCH (08:57)
[2023-01-19] MEDS ORDERED: Losartan 25 MG TAB PO SCH ×2 (09:00→17:30)
[2023-01-19 16:19] VITALS: TEMP 98.3
[2023-01-19 18:45] VITALS: BP 156/74
== END 2023-01-19 18:53 | disposition home health service (06) | DRG 871 ==
LOC: ERS 13:32 → CCU 16:27 → 2NO 01-15 15:06
PROVIDERS: ADMIT Family Medicine; ATTEND Internal Medicine
PROC: 05HM33Z Insertion of Infusion Device into Right Internal Jugular Vein, Percutaneous Approach (ICD-10-PCS; principal; 2023-01-14)
PROC: 3E033XZ Introduction of Vasopressor into Peripheral Vein, Percutaneous Approach (ICD-10-PCS; 2023-01-14)
PROC: 3E04329 Introduction of Other Anti-infective into Central Vein, Percutaneous Approach (ICD-10-PCS; 2023-01-14)
DX: A41.51 Sepsis due to Escherichia coli [E. coli] (principal); I21.A1 Myocardial infarction type 2; R65.21 Severe sepsis with septic shock; J69.0 Pneumonitis due to inhalation of food and vomit; J15.6 Pneumonia due to other Gram-negative bacteria; J96.01 Acute respiratory failure with hypoxia; N17.9 Acute kidney failure, unspecified; N39.0 Urinary tract infection, site not specified; E87.1 Hypo-osmolality and hyponatremia; I48.21 Permanent atrial fibrillation; G93.40 Encephalopathy, unspecified; Z66 Do not resuscitate; J44.9 Chronic obstructive pulmonary disease, unspecified; I25.10 Atherosclerotic heart disease of native coronary artery without angina pectoris; F31.9 Bipolar disorder, unspecified; E83.42 Hypomagnesemia; I48.0 Paroxysmal atrial fibrillation; I27.20 Pulmonary hypertension, unspecified; R33.9 Retention of urine, unspecified; N18.2 Chronic kidney disease, stage 2 (mild); E87.5 Hyperkalemia; E11.22 Type 2 diabetes mellitus with diabetic chronic kidney disease; I12.9 Hypertensive chronic kidney disease with stage 1 through stage 4 chronic kidney disease, or unspecified chronic kidney disease; B19.20 Unspecified viral hepatitis C without hepatic coma; E03.9 Hypothyroidism, unspecified; Z88.8 Allergy status to other drugs, medicaments and biological substances; Z86.73 Personal history of transient ischemic attack (TIA), and cerebral infarction without residual deficits; Z88.2 Allergy status to sulfonamides; Z79.890 Hormone replacement therapy; Z79.84 Long term (current) use of oral hypoglycemic drugs; Z79.899 Other long term (current) drug therapy; I25.2 Old myocardial infarction; Z90.710 Acquired absence of both cervix and uterus; Z90.49 Acquired absence of other specified parts of digestive tract; Z90.89 Acquired absence of other organs; Z98.890 Other specified postprocedural states; Z20.822 Contact with and (suspected) exposure to COVID-19
CPT/HCPCS: 36415; 36416; 70450; 71045; 71275; 80048; 80053; 80061; 81003; 81015; 82553; 83036; 83605; 83735; 84145; 84443; 84484; 85025; 85610; 85730; 87040; 87077; 87081; 87086; 87186; 87449; 87899; 93005; 94760; C9113; J0692; J1160; J1650; J1815; J2185; J3370-JW; J3475; J3490; J7050

== ENCOUNTER 2023-02-22 13:47 | Inpatient (IN) | payer OTHER, MEDICAID ==
[2023-02-22 14:18] LABS: #Basophils 0.1 thou/uL (0.0-0.2); #Eosinphils 0.1 thou/uL (0.0-0.7); #Lymphocytes 1.7 thou/uL (1.20-3.40); #Monocytes 0.4 thou/uL (0.11-0.59); #Neutrophils 2.6 thou/uL (1.40-6.50); %Basophils 1.1 % (0.0-1.0); %Eosinophils 2.9 % (0.0-10.0); %Lymphocytes 35.3 % (21.0-51.0); %Monocytes 8.5 % (0.0-10.0); %Neutrophils 52.3 % (42.0-75.0); Hemoglobin 11.8 g/dL (12.0-16.0); Mean Corpuscular HGB CONC 33.5 g/dL (32.0-36.0); Mean Corpuscular Hemoglobin 33.4 pg (27.0-31.0); Mean Corpuscular Volume 99.7 fl (78.0-98.0); Mean Platelet Volume 7.1 fL (7.4-10.4); Platelet Count 156 10x3/uL (130-400); RBC Distribution Width 14.8 % (11.5-14.5); Red Blood Cell (RBC) Count 3.54 mill/uL (4.20-5.40); White Blood Cell (WBC) Count 4.9 10x3/uL (4.8-10.8)
[2023-02-22] MEDS ORDERED: NOREPINEPHRINE 8 MG/250 ML-D5W 250 ML ONE (14:18)
[2023-02-22 14:30] LABS: INR-International Normal Ratio 1.3; Prothrombin Time 16.5 sec (12.0-14.7)
[2023-02-22 14:31] LABS: PTT 30.2 sec (22.9-36.1)
[2023-02-22 14:44] LABS: ALT (SGPT) 17 U/L (8-55); AST (SGOT) 20 U/L (5-34); Albumin 3.4 g/dL (3.4-4.8); Alkaline Phosphatase 55 U/L (40-110); Anion Gap 16 mmol/L (10-20); BUN (Urea Nitrogen) 22 mg/dL (9.8-20.1); Bilirubin, Total 0.5 mg/dL (0.2-1.2); Calc. Creatinine Clearance 0 mL/min (70-130); Calcium 8.1 mg/dL (7.8-10.44); Carbon Dioxide 23 mmol/L (23-31); Chloride 103 mmol/L (98-107); Estimated GFR 33; Globulin 2.8 g/dL (2.4-3.5); Glucose 181 mg/dL (83-110); Magnesium 1.9 mg/dL (1.6-2.6); Potassium 4.5 mmol/L (3.5-5.1); Protein, Total 6.2 g/dL (5.8-8.1); Sodium 137 mmol/L (136-145)
[2023-02-22 15:06] LABS: Actual Bicarbonate (HCO3v) 21.3 mEq/L (22-28); Base Excess -7.5 mEq/L (-2.0 to +3.0); Calcium, Ionized (venous) 1.09 mmol/L (1.16-1.32); Chloride (VBG) 103 mmol/L (98-106); Hematocrit-VBG 36 % (36.0-47.0); Hemoglobin (Hb) 12.4 g/dL (11.7-16.1)
[2023-02-22 15:07] LABS: pH (venous) 7.182 (7.32-7.43)
[2023-02-22 16:07] LABS: Bacteria/HPF 3+ HPF (None Seen); Bilirubin Negative (Negative); Blood, Urine Negative (Negative); Clarity Turbid (Clear); Glucose, Urine (Dipstick) Greater than 1000 mg/dL (Negative); Ketone, Urine Negative (Negative); Leukocyte 500 Leu/uL (Negative); Nitrite Negative (Negative); Protein, Urine (Dipstick) 10 mg/dL (Neg-Trace); RBC/HPF 0-3 HPF (0-3); Specific Gravity, Urine 1.017 (1.002-1.036); Squamous Epithelial None Seen HPF (0-3); Urobilinogen Normal mg/dL (Less than 2); WBC/HPF Greater than 50 HPF (0-3)
[2023-02-22] MEDS ORDERED: cefTRIAXone (ROCEPHIN) 2 GM VIAL ONE (16:43)
[2023-02-22] MEDS ORDERED: Vancomycin 1.5 GRAM/300 ML BAG 1.5 GM in Premix Bag 1 BAG IVPB SCH (17:00)
[2023-02-22] MEDS ORDERED: Ondansetron PF 4 MG/2 ML Vial IVP PRN (18:39)
[2023-02-22] MEDS ORDERED: HumaLOG 300 UNITS/3 ML VIAL SC PRN ×2 (18:41)
[2023-02-22] MEDS ORDERED: Dextrose 5% in Water 1,000 ML IV PRN (18:41)
[2023-02-22] MEDS ORDERED: Dextrose 50% Abboject 50 ML SYRINGE SLOW IVP PRN (18:41)
[2023-02-22] MEDS ORDERED: Sodium Chloride 0.9% 1,000 ML IV SCH (18:45)
[2023-02-22 19:08] LABS: Lactic Acid 1.2 mmol/L (0.5-2.2)
[2023-02-22 20:14] VITALS: BMI 39.5
[2023-02-22] MEDS: Lactated Ringer's 1,000 ML IV SCH (20:19)
[2023-02-22] MEDS ORDERED: Electrolyte Replacement Protocol 1 EACH FS SCH (20:45)
[2023-02-22] MEDS: Famotidine/PF 20 mg/2ml Vial SLOW IVP SCH (21:13)
[2023-02-22] MEDS ORDERED: NOREPINEPHRINE 8 MG/250 ML-D5W 250 ML IVPB SCH (21:30)
[2023-02-22] MEDS ORDERED: Cefepime 1 GM in Sodium Chloride 0.9% 100 ML IVPB SCH (22:00)
[2023-02-23 04:16] LABS: #Eosinphils 0.3 thou/uL (0.0-0.7); #Lymphocytes 1.5 thou/uL (1.20-3.40); #Monocytes 0.5 thou/uL (0.11-0.59); #Neutrophils 2.6 thou/uL (1.40-6.50); %Basophils 0.5 % (0.0-1.0); %Eosinophils 5.5 % (0.0-10.0); %Lymphocytes 30.6 % (21.0-51.0); %Monocytes 10.2 % (0.0-10.0); %Neutrophils 53.2 % (42.0-75.0); Hemoglobin 10.6 g/dL (12.0-16.0); Mean Corpuscular HGB CONC 33.7 g/dL (32.0-36.0); Mean Corpuscular Hemoglobin 33.2 pg (27.0-31.0); Mean Corpuscular Volume 98.8 fl (78.0-98.0); Mean Platelet Volume 7.2 fL (7.4-10.4); Platelet Count 163 10x3/uL (130-400); RBC Distribution Width 14.7 % (11.5-14.5); Red Blood Cell (RBC) Count 3.18 mill/uL (4.20-5.40)
[2023-02-23 04:27] LABS: Anion Gap 12 mmol/L (10-20); BUN (Urea Nitrogen) 18 mg/dL (9.8-20.1); Calc. Creatinine Clearance 70 mL/min (70-130); Calcium 8.3 mg/dL (7.8-10.44); Carbon Dioxide 27 mmol/L (23-31); Chloride 103 mmol/L (98-107); Estimated GFR 53; Glucose 146 mg/dL (83-110); Potassium 3.9 mmol/L (3.5-5.1); Sodium 138 mmol/L (136-145)
[2023-02-23] MEDS: Levothyroxine 150 MCG TAB PO SCH (06:07)
[2023-02-23] MEDS: Lactated Ringer's 1,000 ML IV SCH ×2 (06:07→16:32)
[2023-02-23] MEDS ORDERED: Magnesium 2 GM/50 ML(in water) 2 GM in Premix Bag 1 BAG IVPB SCH (08:00)
[2023-02-23] MEDS: Famotidine/PF 20 mg/2ml Vial SLOW IVP SCH ×2 (08:03→21:05)
[2023-02-23] MEDS: Cefepime 1 GM in Sodium Chloride 0.9% 100 ML IVPB SCH ×2 (08:03→21:05)
[2023-02-23] MEDS ORDERED: Norepinephrine 8 MG in Dextrose 5% in Water 242 ML IVPB PRN (08:45)
[2023-02-23] MEDS ORDERED: Cefepime 1 GM in Sodium Chloride 0.9% 100 ML IVPB SCH (09:00)
[2023-02-23] MEDS: Apixaban 5 MG TAB PO SCH (21:05)
[2023-02-24] MEDS: Levothyroxine 150 MCG TAB PO SCH (05:52)
[2023-02-24] MEDS: Ezetimibe 10 MG TAB PO SCH (09:04)
[2023-02-24] MEDS: Cefepime 1 GM in Sodium Chloride 0.9% 100 ML IVPB SCH ×2 (09:05→20:51)
[2023-02-24] MEDS: Citalopram 10 MG TAB PO SCH (09:05)
[2023-02-24] MEDS: Famotidine/PF 20 mg/2ml Vial SLOW IVP SCH ×2 (09:05→20:43)
[2023-02-24] MEDS: Empagliflozin 25 MG TAB PO SCH (09:05)
[2023-02-24] MEDS: Apixaban 5 MG TAB PO SCH ×2 (09:05→20:42)
[2023-02-24] MEDS ORDERED: Iopamidol 370 76% 100 ML VIAL ONE (10:07)
[2023-02-24] MEDS ORDERED: NS 0.9% w/ 20 MEQ KCL 1,000 ML/1,000 ML BAG IV SCH (11:00)
[2023-02-25] MEDS: Levothyroxine 150 MCG TAB PO SCH (05:51)
[2023-02-25] MEDS ORDERED: Losartan 25 MG TAB PO SCH (09:00)
[2023-02-25] MEDS ORDERED: Furosemide 20 MG TAB PO SCH (09:00)
[2023-02-25] MEDS: Empagliflozin 25 MG TAB PO SCH (09:26)
[2023-02-25] MEDS: Cefepime 1 GM in Sodium Chloride 0.9% 100 ML IVPB SCH (09:27)
[2023-02-25] MEDS: Citalopram 10 MG TAB PO SCH (09:27)
[2023-02-25] MEDS: Ezetimibe 10 MG TAB PO SCH (09:27)
[2023-02-25] MEDS: Famotidine/PF 20 mg/2ml Vial SLOW IVP SCH (09:27)
[2023-02-25] MEDS: Apixaban 5 MG TAB PO SCH (09:27)
[2023-02-25 16:20] VITALS: BP 149/98; TEMP 98.2
[2023-02-25] MEDS ORDERED: metFORMIN 500 MG TAB PO SCH (16:30)
[2023-02-25] MEDS ORDERED: Mirtazapine 15 MG Soltab PO SCH (21:00)
== END 2023-02-25 17:41 | disposition home or self-care (01) | DRG 871 ==
LOC: ERS 13:47 → CCU 17:38 → T4-A 02-23 14:05
PROVIDERS: ADMIT Family Medicine; ATTEND Family Medicine
PROC: 3E03329 Introduction of Other Anti-infective into Peripheral Vein, Percutaneous Approach (ICD-10-PCS; principal; 2023-02-22)
PROC: 3E033XZ Introduction of Vasopressor into Peripheral Vein, Percutaneous Approach (ICD-10-PCS; 2023-02-22)
PROC: 3E03329 Introduction of Other Anti-infective into Peripheral Vein, Percutaneous Approach (ICD-10-PCS; 2023-02-22)
PROC: 02H633Z Insertion of Infusion Device into Right Atrium, Percutaneous Approach (ICD-10-PCS; 2023-02-22)
PROC: B548ZZA Ultrasonography of Superior Vena Cava, Guidance (ICD-10-PCS; 2023-02-22)
DX: A41.4 Sepsis due to anaerobes (principal); G93.41 Metabolic encephalopathy; N39.0 Urinary tract infection, site not specified; I48.20 Chronic atrial fibrillation, unspecified; E87.20 Acidosis, unspecified; N17.9 Acute kidney failure, unspecified; R65.20 Severe sepsis without septic shock; E11.9 Type 2 diabetes mellitus without complications; I10 Essential (primary) hypertension; F32.A Depression, unspecified; E66.9 Obesity, unspecified; D53.9 Nutritional anemia, unspecified; E89.0 Postprocedural hypothyroidism; Z88.2 Allergy status to sulfonamides; Z88.8 Allergy status to other drugs, medicaments and biological substances; Z79.899 Other long term (current) drug therapy; Z79.84 Long term (current) use of oral hypoglycemic drugs; Z79.01 Long term (current) use of anticoagulants; Z68.35 Body mass index [BMI] 35.0-35.9, adult; I25.2 Old myocardial infarction; Z86.73 Personal history of transient ischemic attack (TIA), and cerebral infarction without residual deficits; Z86.19 Personal history of other infectious and parasitic diseases; Z90.49 Acquired absence of other specified parts of digestive tract; Z90.710 Acquired absence of both cervix and uterus; Z98.890 Other specified postprocedural states
CPT/HCPCS: 36416; 70450; 71045; 74177; 80048; 80053; 81003; 81015; 82805; 83605; 83735; 83880; 84145; 84443; 84484; 85025; 85610; 85730; 87040; 87077; 87086; 87186; 93005; J0692; J0696; J1650; J1815; J3370; J3475; J3480; J3490; J7120; Q9967; S0028

== ENCOUNTER 2023-02-25 21:54 | Observation (INO) | payer OTHER, MEDICAID ==
[2023-02-25 22:59] LABS: #Basophils 0.1 thou/uL (0.0-0.2); #Eosinphils 0.2 thou/uL (0.0-0.7); #Monocytes 0.6 thou/uL (0.11-0.59); #Neutrophils 3.6 thou/uL (1.40-6.50); %Basophils 0.9 % (0.0-1.0); %Eosinophils 2.2 % (0.0-10.0); %Lymphocytes 32.4 % (21.0-51.0); %Monocytes 9.4 % (0.0-10.0); %Neutrophils 54.4 % (42.0-75.0); Hemoglobin 13.5 g/dL (12.0-16.0); Mean Corpuscular HGB CONC 33.9 g/dL (32.0-36.0); Mean Corpuscular Hemoglobin 31.8 pg (27.0-31.0); Mean Corpuscular Volume 93.9 fl (78.0-98.0); Mean Platelet Volume 8.6 fL (7.4-10.4); Platelet Count 270 10x3/uL (130-400); RBC Distribution Width 15.1 % (11.5-14.5); Red Blood Cell (RBC) Count 4.24 mill/uL (4.20-5.40); White Blood Cell (WBC) Count 6.7 10x3/uL (4.8-10.8)
[2023-02-25 23:23] LABS: ALT (SGPT) 19 U/L (8-55); AST (SGOT) 23 U/L (5-34); Albumin 4.2 g/dL (3.4-4.8); Alkaline Phosphatase 65 U/L (40-110); Anion Gap 22 mmol/L (10-20); BUN (Urea Nitrogen) 19 mg/dL (9.8-20.1); Bilirubin, Total 0.7 mg/dL (0.2-1.2); Calc. Creatinine Clearance 0 mL/min (70-130); Calcium 9.9 mg/dL (7.8-10.44); Carbon Dioxide 22 mmol/L (23-31); Chloride 98 mmol/L (98-107); Estimated GFR 40; Globulin 3.1 g/dL (2.4-3.5); Glucose 171 mg/dL (83-110); Protein, Total 7.3 g/dL (5.8-8.1); Sodium 138 mmol/L (136-145)
[2023-02-26] MEDS ORDERED: Ondansetron PF 4 MG/2 ML Vial IVP PRN (00:49)
[2023-02-26] MEDS ORDERED: Acetaminophen 325 MG TAB PO PRN (00:49)
[2023-02-26] MEDS ORDERED: Sodium Chloride 0.9% 1,000 ML IV SCH (01:00)
[2023-02-26] MEDS ORDERED: Nitroglycerin 0.4 MG TAB (25 Tab Bottle) SL PRN (01:01)
[2023-02-26] MEDS ORDERED: Dextrose 5% in Water 1,000 ML IV PRN (01:22)
[2023-02-26] MEDS ORDERED: HumaLOG 300 UNITS/3 ML VIAL SC PRN ×2 (01:22)
[2023-02-26] MEDS ORDERED: Dextrose 50% Abboject 50 ML SYRINGE SLOW IVP PRN (01:22)
[2023-02-26 02:31] LABS: #Basophils 0.1 thou/uL (0.0-0.2); #Eosinphils 0.2 thou/uL (0.0-0.7); #Monocytes 0.6 thou/uL (0.11-0.59); #Neutrophils 2.9 thou/uL (1.40-6.50); %Eosinophils 3.1 % (0.0-10.0); %Lymphocytes 35.6 % (21.0-51.0); %Monocytes 9.8 % (0.0-10.0); %Neutrophils 49.6 % (42.0-75.0); Hemoglobin 12.9 g/dL (12.0-16.0); Mean Corpuscular HGB CONC 33.2 g/dL (32.0-36.0); Mean Corpuscular Hemoglobin 32.1 pg (27.0-31.0); Mean Corpuscular Volume 96.5 fl (78.0-98.0); Mean Platelet Volume 8.6 fL (7.4-10.4); Platelet Count 251 10x3/uL (130-400); RBC Distribution Width 15.2 % (11.5-14.5); Red Blood Cell (RBC) Count 4.02 mill/uL (4.20-5.40); White Blood Cell (WBC) Count 5.8 10x3/uL (4.8-10.8)
[2023-02-26 03:07] LABS: Anion Gap 21 mmol/L (10-20); BUN (Urea Nitrogen) 17 mg/dL (9.8-20.1); Calc. Creatinine Clearance 0 mL/min (70-130); Calcium 9.3 mg/dL (7.8-10.44); Carbon Dioxide 20 mmol/L (23-31); Cardiac Risk 5.8 (Less than 4.5); Chloride 101 mmol/L (98-107); Cholesterol 256 mg/dl (< 200 Desired); Estimated GFR 49; Glucose 137 mg/dL (83-110); HDL Cholesterol 44 mg/dL (>60 Neg Risk); LDL Cholesterol, Calculated 169 mg/dL; Potassium 4.1 mmol/L (3.5-5.1); Sodium 138 mmol/L (136-145); Triglycerides 213 mg/dL (Less than 150)
[2023-02-26 03:43] VITALS: BMI 36.1
[2023-02-26 05:57] LABS: Troponin I Less than 0.010 ng/mL (< 0.028)
[2023-02-26] MEDS: Ciprofloxacin 500 MG TAB PO SCH ×2 (09:03→20:52)
[2023-02-26 16:48] VITALS: TEMP 97.7
[2023-02-26] MEDS ORDERED: Apixaban 5 MG TAB PO SCH (21:00)
[2023-02-26 21:29] VITALS: BP 171/85
== END 2023-02-26 22:05 | disposition home or self-care (01) ==
LOC: ERS 21:54 → 2NO 02-26 00:47
PROVIDERS: ADMIT Family Medicine; ATTEND Family Medicine
DX: R07.89 Other chest pain (principal); G93.40 Encephalopathy, unspecified; N17.9 Acute kidney failure, unspecified; N39.0 Urinary tract infection, site not specified; B96.1 Klebsiella pneumoniae [K. pneumoniae] as the cause of diseases classified elsewhere; E11.9 Type 2 diabetes mellitus without complications; I48.20 Chronic atrial fibrillation, unspecified; I10 Essential (primary) hypertension; E03.9 Hypothyroidism, unspecified; I25.10 Atherosclerotic heart disease of native coronary artery without angina pectoris; J44.9 Chronic obstructive pulmonary disease, unspecified; I25.2 Old myocardial infarction; Z66 Do not resuscitate; Z86.73 Personal history of transient ischemic attack (TIA), and cerebral infarction without residual deficits; Z79.01 Long term (current) use of anticoagulants; Z79.84 Long term (current) use of oral hypoglycemic drugs; Z79.890 Hormone replacement therapy; Z79.2 Long term (current) use of antibiotics; Z79.899 Other long term (current) drug therapy; Z88.2 Allergy status to sulfonamides; Z88.8 Allergy status to other drugs, medicaments and biological substances
CPT/HCPCS: 36415; 36416; 71045; 80048; 80053; 80061; 84484; 85025; 93005; 93306; 94760; G0378; J7050

== ENCOUNTER 2023-05-11 12:51 | Observation (INO) | payer OTHER, MEDICAID ==
[2023-05-11 13:51] LABS: #Basophils 0.1 thou/uL (0.0-0.2); #Eosinphils 0.5 thou/uL (0.0-0.7); #Monocytes 0.4 thou/uL (0.11-0.59); %Eosinophils 10.6 % (0.0-10.0); %Lymphocytes 39.1 % (21.0-51.0); %Monocytes 7.7 % (0.0-10.0); %Neutrophils 41.4 % (42.0-75.0); Hemoglobin 11.8 g/dL (12.0-16.0); Mean Corpuscular HGB CONC 32.5 g/dL (32.0-36.0); Mean Corpuscular Hemoglobin 32.2 pg (27.0-31.0); Mean Corpuscular Volume 99.2 fl (78.0-98.0); Mean Platelet Volume 9.7 fL (7.4-10.4); Platelet Count 121 10x3/uL (130-400); RBC Distribution Width 13.4 % (11.5-14.5); Red Blood Cell (RBC) Count 3.66 mill/uL (4.20-5.40); White Blood Cell (WBC) Count 4.9 10x3/uL (4.8-10.8)
[2023-05-11 14:08] LABS: ALT (SGPT) 14 U/L (8-55); AST (SGOT) 18 U/L (5-34); Albumin 3.8 g/dL (3.4-4.8); Alkaline Phosphatase 54 U/L (40-110); Anion Gap 10 mmol/L (10-20); BUN (Urea Nitrogen) 17 mg/dL (9.8-20.1); Bilirubin, Total 0.3 mg/dL (0.2-1.2); Calc. Creatinine Clearance 0 mL/min (70-130); Calcium 8.4 mg/dL (7.8-10.44); Carbon Dioxide 26 mmol/L (23-31); Chloride 106 mmol/L (98-107); Estimated GFR 62; Globulin 2.5 g/dL (2.4-3.5); Glucose 139 mg/dL (83-110); Lipase 11 U/L (8-78); Protein, Total 6.3 g/dL (5.8-8.1); Sodium 138 mmol/L (136-145)
[2023-05-11 16:59] LABS: Troponin I Less than 0.010 ng/mL (< 0.028)
[2023-05-11] MEDS ORDERED: Ondansetron PF 4 MG/2 ML Vial IVP PRN (17:45)
[2023-05-11] MEDS ORDERED: Ondansetron ODT 4 MG TAB SL PRN (17:45)
[2023-05-11] MEDS ORDERED: Acetaminophen 325 MG TAB PO PRN ×2 (17:45→18:17)
[2023-05-11 18:17] VITALS: BMI 36.6
[2023-05-11] MEDS ORDERED: Glucagon 1 MG/ML KIT IM PRN (18:17)
[2023-05-11] MEDS ORDERED: Dextrose 50% Abboject 50 ML SYRINGE SLOW IVP PRN (18:17)
[2023-05-11] MEDS ORDERED: Dextrose 5% in Water 1,000 ML IV PRN (18:17)
[2023-05-11] MEDS ORDERED: HumaLOG 300 UNITS/3 ML VIAL SC PRN ×2 (18:17)
[2023-05-11] MEDS ORDERED: Nitroglycerin 0.4 MG TAB (25 Tab Bottle) SL PRN (18:17)
[2023-05-11] MEDS ORDERED: Docusate 100 MG CAP PO PRN (18:17)
[2023-05-11] MEDS ORDERED: Electrolyte Replacement Protocol 1 EACH FS SCH (18:30)
[2023-05-11 19:42] LABS: Troponin I 0.011 ng/mL (< 0.028)
[2023-05-11] MEDS: Gabapentin 400 MG CAP PO SCH (20:56)
[2023-05-11] MEDS: Famotidine 20 MG TAB PO SCH (20:57)
[2023-05-11] MEDS ORDERED: tiZANidine HCl 4 MG TAB PO SCH (21:00)
[2023-05-11] MEDS ORDERED: Mirtazapine 15 MG TAB PO SCH (21:00)
[2023-05-11] MEDS: Buprenorphine HCl 2 MG SL TAB PO SCH (21:47)
[2023-05-12 05:51] LABS: #Eosinphils 0.6 thou/uL (0.0-0.7); #Monocytes 0.4 thou/uL (0.11-0.59); #Neutrophils 1.9 thou/uL (1.40-6.50); %Basophils 0.7 % (0.0-1.0); %Eosinophils 10.7 % (0.0-10.0); %Lymphocytes 47.2 % (21.0-51.0); %Monocytes 7.2 % (0.0-10.0); %Neutrophils 33.8 % (42.0-75.0); Hemoglobin 12.6 g/dL (12.0-16.0); Mean Corpuscular HGB CONC 32.6 g/dL (32.0-36.0); Mean Corpuscular Hemoglobin 32.5 pg (27.0-31.0); Mean Corpuscular Volume 99.5 fl (78.0-98.0); Mean Platelet Volume 9.4 fL (7.4-10.4); Platelet Count 141 10x3/uL (130-400); RBC Distribution Width 13.3 % (11.5-14.5); Red Blood Cell (RBC) Count 3.88 mill/uL (4.20-5.40); White Blood Cell (WBC) Count 5.7 10x3/uL (4.8-10.8)
[2023-05-12] MEDS ORDERED: Levothyroxine 150 MCG TAB PO SCH (06:00)
[2023-05-12 06:18] LABS: Anion Gap 12 mmol/L (10-20); BUN (Urea Nitrogen) 15 mg/dL (9.8-20.1); Calc. Creatinine Clearance 68 mL/min (70-130); Calcium 8.9 mg/dL (7.8-10.44); Carbon Dioxide 24 mmol/L (23-31); Chloride 107 mmol/L (98-107); Estimated GFR 57; Glucose 69 mg/dL (83-110); Magnesium 1.9 mg/dL (1.6-2.6); Potassium 4.3 mmol/L (3.5-5.1); Sodium 139 mmol/L (136-145)
[2023-05-12 06:28] LABS: Bacteria/HPF 1+ HPF (None Seen); Bilirubin Negative (Negative); Blood, Urine 1+ (Negative); CAUTI Indications for Culture Pelvic or flank pain; Clarity Clear (Clear); Glucose, Urine (Dipstick) Greater than 1000 mg/dL (Negative); Ketone, Urine Negative (Negative); Leukocyte 250 Leu/uL (Negative); Nitrite 1+ (Negative); Protein, Urine (Dipstick) Negative (Neg-Trace); Specific Gravity, Urine 1.021 (1.002-1.036); Squamous Epithelial 0-3 HPF (0-3); Urobilinogen Normal mg/dL (Less than 2); WBC/HPF 21-50 HPF (0-3)
[2023-05-12 06:29] LABS: Urine Culture Reflex Yes Yes
[2023-05-12] MEDS: Gabapentin 400 MG CAP PO SCH ×2 (07:51→16:32)
[2023-05-12] MEDS: Famotidine 20 MG TAB PO SCH (07:51)
[2023-05-12] MEDS ORDERED: Magnesium 2 GM/50 ML(in water) 2 GM in Premix Bag 1 BAG IVPB SCH (08:00)
[2023-05-12] MEDS: Buprenorphine HCl 2 MG SL TAB PO SCH (08:13)
[2023-05-12] MEDS ORDERED: Furosemide 20 MG/2 ML VIAL SLOW IVP SCH (08:15)
[2023-05-12] MEDS: metFORMIN 500 MG TAB PO SCH ×2 (08:16→16:33)
[2023-05-12] MEDS ORDERED: Empagliflozin 25 MG TAB PO SCH (09:00)
[2023-05-12] MEDS ORDERED: Losartan 25 MG TAB PO SCH (09:00)
[2023-05-12] MEDS ORDERED: Atorvastatin Calcium 20 MG TAB PO SCH (09:00)
[2023-05-12] MEDS ORDERED: Ezetimibe 10 MG TAB PO SCH (09:00)
[2023-05-12] MEDS ORDERED: Apixaban 5 MG TAB PO SCH (09:00)
[2023-05-12] MEDS: Ondansetron ODT 4 MG TAB PO SCH ×2 (09:35→16:32)
[2023-05-12] MEDS ORDERED: Promethazine 25 MG TAB PO PRN (10:24)
[2023-05-12 15:57] VITALS: BP 135/69; TEMP 97.6
[2023-05-12] MEDS ORDERED: QUEtiapine 100 MG TAB PO SCH (21:00)
== END 2023-05-12 18:35 | disposition home or self-care (01) ==
LOC: ERS 12:51 → 2SW 16:08
PROVIDERS: ADMIT Internal Medicine; ATTEND Emergency Medicine
DX: R07.9 Chest pain, unspecified (principal); I48.0 Paroxysmal atrial fibrillation; E11.40 Type 2 diabetes mellitus with diabetic neuropathy, unspecified; E03.9 Hypothyroidism, unspecified; I10 Essential (primary) hypertension; E78.5 Hyperlipidemia, unspecified; I25.10 Atherosclerotic heart disease of native coronary artery without angina pectoris; I25.2 Old myocardial infarction; Z79.01 Long term (current) use of anticoagulants; Z86.73 Personal history of transient ischemic attack (TIA), and cerebral infarction without residual deficits; Z88.2 Allergy status to sulfonamides; Z88.8 Allergy status to other drugs, medicaments and biological substances; Z88.1 Allergy status to other antibiotic agents; Z79.84 Long term (current) use of oral hypoglycemic drugs; Z79.899 Other long term (current) drug therapy; Z90.49 Acquired absence of other specified parts of digestive tract; Z90.710 Acquired absence of both cervix and uterus
CPT/HCPCS: 71045; 80048; 80053; 81001; 82962 ×2; 83690; 83735; 83880; 84484 ×2; 85025 ×2; 87077; 87086; 87186; 93005; 94760; 96374; 96375; 99285; G0378 ×3; J0571 ×2; 36415; 36416; J1940; J3475; Q0162

== ENCOUNTER 2023-05-26 15:46 | Observation (INO) | payer MEDICARE, MEDICAID ==
[2023-05-26 16:58] LABS: #Eosinphils 0.5 thou/uL (0.0-0.7); #Monocytes 0.4 thou/uL (0.11-0.59); #Neutrophils 1.8 thou/uL (1.40-6.50); %Basophils 0.5 % (0.0-1.0); %Eosinophils 11.2 % (0.0-10.0); %Lymphocytes 36.2 % (21.0-51.0); %Monocytes 8.3 % (0.0-10.0); %Neutrophils 43.6 % (42.0-75.0); Hematocrit 37.4 % (36.0-47.0); Hemoglobin 12.1 g/dL (12.0-16.0); Mean Corpuscular HGB CONC 32.4 g/dL (32.0-36.0); Mean Corpuscular Hemoglobin 31.9 pg (27.0-31.0); Mean Corpuscular Volume 98.7 fl (78.0-98.0); Mean Platelet Volume 9.2 fL (7.4-10.4); Platelet Count 133 10x3/uL (130-400); RBC Distribution Width 13.1 % (11.5-14.5); Red Blood Cell (RBC) Count 3.79 mill/uL (4.20-5.40); White Blood Cell (WBC) Count 4.2 10x3/uL (4.8-10.8)
[2023-05-26 17:17] LABS: INR-International Normal Ratio 1.3; PTT 37.6 sec (22.9-36.1); Prothrombin Time 16.7 sec (12.0-14.7)
[2023-05-26 17:29] LABS: ALT (SGPT) 11 U/L (8-55); AST (SGOT) 21 U/L (5-34); Albumin 3.5 g/dL (3.4-4.8); Alkaline Phosphatase 57 U/L (40-110); Anion Gap 10 mmol/L (10-20); BUN (Urea Nitrogen) 12 mg/dL (9.8-20.1); Bilirubin, Total 0.5 mg/dL (0.2-1.2); Calc. Creatinine Clearance 0 mL/min (70-130); Calcium 8.6 mg/dL (7.8-10.44); Carbon Dioxide 29 mmol/L (23-31); Chloride 105 mmol/L (98-107); Estimated GFR 62; Globulin 2.7 g/dL (2.4-3.5); Glucose 132 mg/dL (83-110); Potassium 4.8 mmol/L (3.5-5.1); Protein, Total 6.2 g/dL (5.8-8.1); Sodium 139 mmol/L (136-145)
[2023-05-26] MEDS ORDERED: Glucagon 1 MG/ML KIT IM PRN (19:14)
[2023-05-26] MEDS ORDERED: Dextrose 5% in Water 1,000 ML IV PRN (19:14)
[2023-05-26] MEDS ORDERED: HumaLOG 300 UNITS/3 ML VIAL SC PRN ×2 (19:14)
[2023-05-26] MEDS ORDERED: Acetaminophen 325 MG TAB PO PRN (19:14)
[2023-05-26] MEDS ORDERED: Dextrose 50% Abboject 50 ML SYRINGE SLOW IVP PRN (19:14)
[2023-05-26] MEDS ORDERED: Ondansetron ODT 4 MG TAB PO PRN (19:14)
[2023-05-26] MEDS ORDERED: Ondansetron PF 4 MG/2 ML Vial IVP PRN (19:14)
[2023-05-26 19:57] LABS: Troponin I Less than 0.010 ng/mL (< 0.028)
[2023-05-26] MEDS ORDERED: Acetaminophen 500 MG TAB PO SCH (20:00)
[2023-05-26] MEDS ORDERED: Cyclobenzaprine 10 MG TAB PO SCH (20:15)
[2023-05-26] MEDS ORDERED: Sodium Chloride 0.9% 1,000 ML IV SCH (20:15)
[2023-05-26 21:27] VITALS: BMI 35.6
[2023-05-26 22:40] LABS: Bacteria/HPF 4+ HPF (None Seen); Bilirubin Negative (Negative); Blood, Urine Negative (Negative); CAUTI Indications for Culture Alt mental st,lethar; Clarity Clear (Clear); Glucose, Urine (Dipstick) Greater than 1000 mg/dL (Negative); Ketone, Urine Negative (Negative); Leukocyte 75 Leu/uL (Negative); Nitrite 2+ (Negative); Protein, Urine (Dipstick) Negative (Neg-Trace); RBC/HPF 0-3 HPF (0-3); Specific Gravity, Urine 1.031 (1.002-1.036); Squamous Epithelial 0-3 HPF (0-3); Urobilinogen Normal mg/dL (Less than 2); Yeast-Budding Rare HPF (None Seen); pH, Urine 5.5 (5.0-9.0)
[2023-05-26 22:42] LABS: Urine Culture Reflex No No
[2023-05-26 23:36] LABS: Troponin I Less than 0.010 ng/mL (< 0.028)
[2023-05-27 05:42] LABS: #Eosinphils 0.5 thou/uL (0.0-0.7); #Monocytes 0.5 thou/uL (0.11-0.59); #Neutrophils 2.3 thou/uL (1.40-6.50); %Basophils 0.8 % (0.0-1.0); %Eosinophils 10.6 % (0.0-10.0); %Lymphocytes 32.9 % (21.0-51.0); %Monocytes 9.8 % (0.0-10.0); %Neutrophils 45.9 % (42.0-75.0); Hematocrit 36.9 % (36.0-47.0); Hemoglobin 12.2 g/dL (12.0-16.0); Mean Corpuscular HGB CONC 33.1 g/dL (32.0-36.0); Mean Corpuscular Hemoglobin 31.9 pg (27.0-31.0); Mean Corpuscular Volume 96.3 fl (78.0-98.0); Mean Platelet Volume 9.5 fL (7.4-10.4); Platelet Count 149 10x3/uL (130-400); Red Blood Cell (RBC) Count 3.83 mill/uL (4.20-5.40); White Blood Cell (WBC) Count 5.1 10x3/uL (4.8-10.8)
[2023-05-27 06:13] LABS: Anion Gap 12 mmol/L (10-20); BUN (Urea Nitrogen) 11 mg/dL (9.8-20.1); Calc. Creatinine Clearance 85 mL/min (70-130); Calcium 8.7 mg/dL (7.8-10.44); Carbon Dioxide 26 mmol/L (23-31); Chloride 106 mmol/L (98-107); Estimated GFR 77; Glucose 78 mg/dL (83-110); Potassium 4.5 mmol/L (3.5-5.1); Sodium 139 mmol/L (136-145)
[2023-05-27 06:25] LABS: Free T4 (Free Thyroxine) 0.77 ng/dL (0.70-1.48); Thyroid Stimulating Hormone 15.5423 uIU/mL (0.35-4.94)
[2023-05-27 16:48] VITALS: BP 188/95
[2023-05-27] MEDS ORDERED: Levothyroxine 150 MCG TAB PO SCH (17:15)
[2023-05-27] MEDS ORDERED: Apixaban 5 MG TAB PO SCH (18:00)
[2023-05-27 18:04] VITALS: TEMP 97.7
[2023-05-28] MEDS ORDERED: Levothyroxine 150 MCG TAB PO SCH (06:00)
== END 2023-05-27 18:13 | disposition left against medical advice (07) ==
LOC: ERS 15:46 → 2NO 18:32
PROVIDERS: ADMIT Internal Medicine; ATTEND Family Medicine
DX: J98.11 Atelectasis (principal); I48.0 Paroxysmal atrial fibrillation; K74.60 Unspecified cirrhosis of liver; B19.20 Unspecified viral hepatitis C without hepatic coma; I48.91 Unspecified atrial fibrillation; I50.9 Heart failure, unspecified; I10 Essential (primary) hypertension; E03.9 Hypothyroidism, unspecified; E11.42 Type 2 diabetes mellitus with diabetic polyneuropathy; F31.9 Bipolar disorder, unspecified; G51.0 Bell's palsy; I25.2 Old myocardial infarction; I69.354 Hemiplegia and hemiparesis following cerebral infarction affecting left non-dominant side; Z88.2 Allergy status to sulfonamides; Z88.6 Allergy status to analgesic agent; Z79.84 Long term (current) use of oral hypoglycemic drugs; Z90.89 Acquired absence of other organs; Z90.49 Acquired absence of other specified parts of digestive tract; Z90.710 Acquired absence of both cervix and uterus; Z79.01 Long term (current) use of anticoagulants; Z79.890 Hormone replacement therapy; Z79.899 Other long term (current) drug therapy
CPT/HCPCS: 70450; 71045; 72125; 73070; 73564; 73590; 73630; 80048; 80053; 81001; 82962 ×2; 84439; 84443; 84484 ×2; 85025 ×2; 85610; 85730; 93005; 97116; 99285; G0378 ×3; 36415; 36416; J7050; J7070

== ENCOUNTER 2023-06-25 05:32 | Day surgery (SDC) | payer MEDICARE, MEDICAID ==
[2023-06-24 11:55] VITALS: BMI 36.4
[~2023-06-25 05:32] MED LIST: EPINEPHrine 0.3 MG in Ophthalmic Irrigation Solution 500 ML IRR SCH
[2023-06-25] MEDS ORDERED: Cyclopentolate 2% Opth Drop 15 ML BOT ONE (06:31)
[2023-06-25] MEDS ORDERED: PHENYLephrine 2.5% Ophth Soln 15 ml Bottle ONE (06:31)
[2023-06-25] MEDS ORDERED: fentaNYL 50 mcg/mL 1 mL Vial ONE (07:45)
[2023-06-25] MEDS ORDERED: PROPOFOL 20 ML ONE (07:45)
[2023-06-25] MEDS ORDERED: Triamcinolone 40 MG/ML VIAL ONE (08:08)
[2023-06-25] MEDS ORDERED: Maxitrol 0.1% Opth Oint 3.5 GM TUBE ONE (08:08)
[2023-06-25] MEDS ORDERED: Lidocaine 4% PF 5 ML AMP ONE (08:08)
[2023-06-25] MEDS ORDERED: Bupivacaine 0.75% 10 ML VIAL ONE (08:08)
[2023-06-25] MEDS ORDERED: CEFAZOLIN 1 GM VIAL ONE (08:08)
[2023-06-25] MEDS ORDERED: Lidocaine 1% PF 5 ML VIAL ONE (08:08)
== END 2023-06-25 09:07 | disposition home or self-care (01) ==
LOC: SDC 05:32
PROVIDERS: ATTEND Ophthalmology Retina Specialist
PROC: 08T43ZZ Resection of Right Vitreous, Percutaneous Approach (ICD-10-PCS; principal; 2023-06-25)
PROC: 08NE3ZZ Release Right Retina, Percutaneous Approach (ICD-10-PCS; 2023-06-25)
DX: H43.11 Vitreous hemorrhage, right eye (principal); Z88.6 Allergy status to analgesic agent
CPT/HCPCS: 67041; 82962; J3010; 36416; J0171; J0690; J2704; J3301; J3490

== ENCOUNTER 2023-09-21 11:05 | Outpatient (CLI) | payer MEDICARE, MEDICAID ==
[2023-09-21 13:22] LABS: #Basophils 0.1 10x3/uL (0.0-0.2); #Eosinphils 0.3 10x3/uL (0.0-0.5); #Monocytes 0.4 10x3/uL (0.0-1.1); #Neutrophils 3.5 10x3/uL (1.5-8.4); %Basophils 0.8 % (0.0-2.0); %Eosinophils 5.4 % (0.0-6.0); %Lymphocytes 28.3 % (18.0-47.0); %Monocytes 6.2 % (0.0-10.0); %Neutrophils 59.1 % (40.0-75.0); Hematocrit 40.1 % (34.9-44.5); Hemoglobin 13.1 g/dL (12.0-15.5); Mean Corpuscular HGB CONC 32.7 g/dL (32.0-36.0); Mean Corpuscular Hemoglobin 31.3 pg (27.0-33.0); Mean Corpuscular Volume 95.7 fl (81.6-98.3); Mean Platelet Volume 9.2 fl (7.4-10.4); Platelet Count 196 10x3/uL (150-450); RBC Distribution Width 13.1 % (11.5-14.5); Red Blood Cell (RBC) Count 4.19 10x6/uL (3.90-5.03)
[2023-09-21 13:35] LABS: Prothrombin Time 10.9 sec (9.5-12.1)
[2023-09-21 13:45] LABS: Anion Gap 13 mmol/L (10-20); BUN (Urea Nitrogen) 13 mg/dL (9.8-20.1); Calc. Creatinine Clearance 0 mL/min (70-130); Calcium 9.3 mg/dL (7.8-10.44); Carbon Dioxide 26 mmol/L (23-31); Chloride 105 mmol/L (98-107); Estimated GFR 93; Potassium 4.5 mmol/L (3.5-5.1); Sodium 139 mmol/L (136-145)
[2023-09-21 13:50] LABS: Glucose 52 mg/dL (83-110)
== END 2023-09-21 11:06 | disposition home or self-care (01) ==
LOC: LABBT 11:05
PROVIDERS: ATTEND Orthopaedic Surgery
DX: Z01.818 Encounter for other preprocedural examination (principal); M75.102 Unspecified rotator cuff tear or rupture of left shoulder, not specified as traumatic; M19.012 Primary osteoarthritis, left shoulder
CPT/HCPCS: 80048; 85025; 85610; 93005; 93010

== ENCOUNTER 2023-09-24 05:39 | Inpatient (IN) | payer MEDICARE, MEDICAID ==
[2023-09-21 11:55] VITALS: BMI 32.8
[2023-09-24] MEDS ORDERED: Sodium Chloride 0.9% 0 ML ONE (06:09)
[2023-09-24] MEDS ORDERED: Vancomycin 1 GM/200 ML (FROZEN) BAG ONE ×2 (06:09→07:04)
[2023-09-24] MEDS ORDERED: Sodium Chloride 0.9% 100 ML ONE ×2 (06:10→07:05)
[2023-09-24] MEDS ORDERED: Tranexamic Acid 1,000 MG/10 ML VIAL ONE (06:10)
[2023-09-24 06:28] LABS: #Eosinphils 0.2 thou/uL (0.0-0.7); #Monocytes 0.4 thou/uL (0.11-0.59); #Neutrophils 4.5 thou/uL (1.40-6.50); %Basophils 0.3 % (0.0-1.0); %Eosinophils 2.4 % (0.0-10.0); %Lymphocytes 18.4 % (21.0-51.0); %Monocytes 6.5 % (0.0-10.0); %Neutrophils 72.1 % (42.0-75.0); Hematocrit 40.8 % (36.0-47.0); Hemoglobin 13.3 g/dL (12.0-16.0); Mean Corpuscular HGB CONC 32.6 g/dL (32.0-36.0); Mean Corpuscular Hemoglobin 31.5 pg (27.0-31.0); Mean Corpuscular Volume 96.7 fl (78.0-98.0); Mean Platelet Volume 9.2 fL (7.4-10.4); Platelet Count 146 10x3/uL (130-400); RBC Distribution Width 13.5 % (11.5-14.5); Red Blood Cell (RBC) Count 4.22 mill/uL (4.20-5.40); White Blood Cell (WBC) Count 6.2 10x3/uL (4.8-10.8)
[2023-09-24] MEDS ORDERED: fentaNYL 50 mcg/mL 1 mL Vial ONE ×3 (06:29→10:17)
[2023-09-24] MEDS ORDERED: Midazolam HCl 2 mg/2 ml Vial ONE (06:29)
[2023-09-24] MEDS ORDERED: Ropivacaine 0.5% HCl/PF (150 MG/30 ML VIAL) ONE (06:37)
[2023-09-24] MEDS ORDERED: Ropivacaine 0.2% HCl/PF 20 ML ONE (06:37)
[2023-09-24] MEDS ORDERED: Dexamethasone 20 MG/5 ML VIAL ONE ×2 (06:39→07:15)
[2023-09-24] MEDS ORDERED: Lidocaine 1% PF 5 ML VIAL ONE (06:39)
[2023-09-24] MEDS ORDERED: Ondansetron PF 4 MG/2 ML Vial ONE (06:39)
[2023-09-24] MEDS ORDERED: PROPOFOL 200 MG/20 ML VIAL ONE (06:39)
[2023-09-24] MEDS ORDERED: ePHEDrine Sulfate 50 MG/10 ML VIAL ONE ×2 (06:39→07:38)
[2023-09-24] MEDS ORDERED: Rocuronium Bromide 10 MG/ML (10ML VIAL) ONE ×2 (06:39→07:16)
[2023-09-24] MEDS ORDERED: Dextrose 50% Abboject 50 ML SYRINGE ONE ×2 (06:46→07:57)
[2023-09-24 06:53] LABS: Anion Gap 13 mmol/L (10-20); Calc. Creatinine Clearance 81 mL/min (70-130); Calcium 9.6 mg/dL (7.8-10.44); Carbon Dioxide 29 mmol/L (23-31); Chloride 104 mmol/L (98-107); Estimated GFR 81; Potassium 4.5 mmol/L (3.5-5.1); Sodium 141 mmol/L (136-145)
[2023-09-24 06:54] LABS: BUN (Urea Nitrogen) 12 mg/dL (9.8-20.1)
[2023-09-24] MEDS ORDERED: CEFAZOLIN 2 GM VIAL ONE (07:05)
[2023-09-24] MEDS ORDERED: fentaNYL PF 100 MCG/2 ML SYRINGE ONE (07:15)
[2023-09-24] MEDS ORDERED: Lidocaine 2% PF 5 ML VIAL ONE (07:16)
[2023-09-24] MEDS ORDERED: PROPOFOL 20 ML ONE (07:16)
[2023-09-24] MEDS ORDERED: fentaNYL 50 mcg/mL 1 mL Vial SLOW IVP PRN (07:41)
[2023-09-24] MEDS ORDERED: Ondansetron PF 4 MG/2 ML Vial IVP PRN (07:45)
[2023-09-24] MEDS ORDERED: Promethazine HCl 25 MG/ML VIAL IM PRN ×2 (07:45→09:01)
[2023-09-24] MEDS ORDERED: Ropivacaine 0.2% 550 ML 550 ML NERVE BLCK SCH (07:45)
[2023-09-24] MEDS ORDERED: Zolpidem Tartrate 5 MG TAB PO PRN (07:45)
[2023-09-24 08:18] LABS: Glucose 54 mg/dL (83-110)
[2023-09-24] MEDS ORDERED: PACU-Morphine 4MG/ML VIAL SLOW IVP PRN (09:01)
[2023-09-24] MEDS ORDERED: HYDROmorphone 2 MG/ML VIAL SLOW IVP PRN (09:01)
[2023-09-24] MEDS ORDERED: Ondansetron HCl/PF 4 MG/2 ML Vial IVP PRN (09:01)
[2023-09-24] MEDS ORDERED: SUGAMMADEX SODIUM 200 MG/2 ML VIAL ONE (09:12)
[2023-09-24] MEDS ORDERED: Acetaminophen 325 MG TAB PO PRN (10:21)
[2023-09-24] MEDS ORDERED: Milk Of Magnesia 30 ML UDCUP PO PRN (10:21)
[2023-09-24] MEDS ORDERED: diphenhydrAMINE 50 MG CAP PO PRN (10:21)
[2023-09-24] MEDS ORDERED: Bisacodyl 10 MG SUPP PR PRN (10:21)
[2023-09-24] MEDS: HYDROcodone/Acetaminophen 5/325 mg Tablet PO PRN ×3 (11:47→23:06)
[2023-09-24] MEDS: Ketorolac Tromethamine 30 MG/ML VIAL IVP SCH ×3 (11:47→23:05)
[2023-09-24] MEDS: Sodium Chloride 0.9% 1,000 ML IV SCH (11:48)
[2023-09-24] MEDS: CEFAZOLIN 2 GM in Sodium Chloride 0.9% 100 ML IVPB SCH ×2 (14:02→23:04)
[2023-09-24] MEDS ORDERED: Glucagon 1 MG/ML KIT IM PRN (14:03)
[2023-09-24] MEDS ORDERED: Dextrose 50% Abboject 50 ML SYRINGE SLOW IVP PRN (14:03)
[2023-09-24] MEDS ORDERED: Dextrose 5% in Water 1,000 ML IV PRN (14:03)
[2023-09-24 16:52] LABS: Glucose 163 mg/dL (83-110)
[2023-09-24] MEDS: Atorvastatin Calcium 20 MG TAB PO SCH (20:16)
[2023-09-24] MEDS: Famotidine 20 MG TAB PO SCH (20:17)
[2023-09-24] MEDS: Donepezil HCl 5 MG TAB PO SCH (20:17)
[2023-09-25] MEDS: Sodium Chloride 0.9% 1,000 ML IV SCH ×2 (03:00→16:34)
[2023-09-25] MEDS: HYDROcodone/Acetaminophen 5/325 mg Tablet PO PRN ×2 (03:58→08:15)
[2023-09-25] MEDS: Levothyroxine 150 MCG TAB PO SCH (05:02)
[2023-09-25] MEDS: Ketorolac Tromethamine 30 MG/ML VIAL IVP SCH ×4 (05:03→23:59)
[2023-09-25] MEDS: Famotidine 20 MG TAB PO SCH ×2 (08:15→21:22)
[2023-09-25] MEDS ORDERED: Non-Formulary Item 1 EACH (Magnesium [Magnesium] 200 MG Tablet) PO SCH (09:00)
[2023-09-25] MEDS ORDERED: fentaNYL 50 mcg/mL 1 mL Vial SLOW IVP PRN (13:04)
[2023-09-25] MEDS ORDERED: Ropivacaine 0.2% 550 ML 550 ML NERVE BLCK SCH (13:15)
[2023-09-25] MEDS ORDERED: traMADol HCl 50 MG TAB PO PRN ×2 (13:15)
[2023-09-25] MEDS ORDERED: Ondansetron PF 4 MG/2 ML Vial IVP PRN (13:15)
[2023-09-25] MEDS ORDERED: HYDROcodone/Acetaminophen 10/325 mg Tablet PO PRN ×2 (13:15)
[2023-09-25] MEDS ORDERED: Promethazine HCl 25 MG/ML VIAL IM PRN (13:15)
[2023-09-25] MEDS ORDERED: Zolpidem Tartrate 5 MG TAB PO PRN (13:15)
[2023-09-25] MEDS: Donepezil HCl 5 MG TAB PO SCH (21:22)
[2023-09-25] MEDS: Atorvastatin Calcium 20 MG TAB PO SCH (21:22)
[2023-09-25] MEDS ORDERED: hydrALAZINE 20 MG/ML VIAL SLOW IVP SCH (23:45)
[2023-09-26] MEDS: Levothyroxine 150 MCG TAB PO SCH (05:08)
[2023-09-26] MEDS: Ketorolac Tromethamine 30 MG/ML VIAL IVP SCH (05:09)
[2023-09-26 08:09] VITALS: BP 174/98; TEMP 98.5
[2023-09-26] MEDS: Sodium Chloride 0.9% 1,000 ML IV SCH (08:19)
[2023-09-26] MEDS: Famotidine 20 MG TAB PO SCH (08:23)
== END 2023-09-26 11:43 | disposition home or self-care (01) | DRG 982 ==
LOC: SDC 05:39 → SURG A 09:28 → OBSVTOIN 09-25 11:55
PROVIDERS: ADMIT Orthopaedic Surgery; ATTEND Orthopaedic Surgery
PROC: 0RPK0J6 Removal of Synthetic Substitute from Left Shoulder Joint, Humeral Surface, Open Approach (ICD-10-PCS; principal; 2023-09-24)
PROC: 0RRK00Z Replacement of Left Shoulder Joint with Reverse Ball and Socket Synthetic Substitute, Open Approach (ICD-10-PCS; 2023-09-24)
DX: E11.649 Type 2 diabetes mellitus with hypoglycemia without coma (principal); I50.32 Chronic diastolic (congestive) heart failure; I69.354 Hemiplegia and hemiparesis following cerebral infarction affecting left non-dominant side; M75.102 Unspecified rotator cuff tear or rupture of left shoulder, not specified as traumatic; M19.012 Primary osteoarthritis, left shoulder; E78.5 Hyperlipidemia, unspecified; E03.9 Hypothyroidism, unspecified; I11.0 Hypertensive heart disease with heart failure; J44.9 Chronic obstructive pulmonary disease, unspecified; Z88.2 Allergy status to sulfonamides; Z88.6 Allergy status to analgesic agent; Z88.1 Allergy status to other antibiotic agents; Z79.01 Long term (current) use of anticoagulants; Z79.4 Long term (current) use of insulin; Z98.51 Tubal ligation status; Z90.49 Acquired absence of other specified parts of digestive tract; I48.91 Unspecified atrial fibrillation; Z83.3 Family history of diabetes mellitus; Z82.49 Family history of ischemic heart disease and other diseases of the circulatory system; Z79.899 Other long term (current) drug therapy; Z90.710 Acquired absence of both cervix and uterus; Z98.890 Other specified postprocedural states; E66.9 Obesity, unspecified; Z68.32 Body mass index [BMI] 32.0-32.9, adult; G89.29 Other chronic pain
CPT/HCPCS: 36415; 36416; 80048; 85025; A4306; C1713; C1776; J0360; J1100; J1885; J2001; J2250; J2405; J2704; J2795; J3010; J3370-JW; J3490; J7050; J7999

== ENCOUNTER 2025-09-05 08:43 | Day surgery (SDC) | payer OTHER ==
[2025-09-04 15:27] VITALS: BMI 30.4
[2025-09-05] MEDS ORDERED: Etomidate 40 MG (20 mL) VIAL ONE (10:04)
[2025-09-05] MEDS ORDERED: PHENYLEPHRINE-NS 100 MCG/ML 10 ML SYRINGE ONE (10:04)
[2025-09-05] MEDS ORDERED: Lidocaine 1% (PF) 30 ML VIAL ONE (10:05)
[2025-09-05 10:12] LABS: #Basophils 0.04 10x3/uL (0.0-0.2); #Eosinophils 0.30 10x3/uL (0.0-0.7); #Monocytes 0.31 10x3/uL (0.11-0.59); #Neutrophils 1.71 10x3/uL (1.40-6.50); %Basophils 1.0 % (0.0-1.0); %Eosinophils 7.4 % (0.0-10.0); %Lymphocytes 41.2 % (21.0-51.0); %Monocytes 7.7 % (0.0-10.0); %Neutrophils 42.5 % (42.0-75.0); Hematocrit 37.9 % (36.0-47.0); Hemoglobin 12.1 g/dL (12.0-16.0); Mean Corpuscular Hemoglobin 30.9 pg (27.0-31.0); Mean Corpuscular Volume 96.9 fL (78.0-98.0); Platelet Count 135 10x3/uL (130-400); Red Blood Cell (RBC) Count 3.91 mill/uL (4.20-5.40); White Blood Cell (WBC) Count 4.03 10x3/uL (4.8-10.8)
[2025-09-05 10:25] LABS: INR-International Normal Ratio 1.2; Prothrombin Time 14.8 sec (12.0-14.7)
[2025-09-05 10:26] LABS: ALT (SGPT) 30 U/L (Less than 34); AST (SGOT) 42 U/L (11-34); Albumin 3.5 g/dL (3.1-4.5); Alkaline Phosphatase 79 U/L (40-110); Anion Gap 13 mmol/L (10-20); BUN (Urea Nitrogen) 9 mg/dL (9.8-20.1); Bilirubin, Direct 0.1 mg/dL (0.1-0.3); Bilirubin, Total 0.3 mg/dL (0.3-1.2); Calc. Creatinine Clearance 62 mL/min (70-130); Calcium 9.2 mg/dL (7.8-10.44); Carbon Dioxide 24 mmol/L (23-31); Chloride 111 mmol/L (98-107); Glucose 118 mg/dL (83-110); PTT 36.3 sec (22.9-36.1); Potassium 5.0 mmol/L (3.5-5.1); Sodium 143 mmol/L (136-145)
[2025-09-05] MEDS ORDERED: PROPOFOL 200 MG/20 ML VIAL ONE (12:10)
== END 2025-09-05 13:38 | disposition home or self-care (01) ==
LOC: SDC 08:43
PROVIDERS: ATTEND Internal Medicine Cardiovascular Disease
DX: I48.0 Paroxysmal atrial fibrillation (principal); I25.10 Atherosclerotic heart disease of native coronary artery without angina pectoris; I35.0 Nonrheumatic aortic (valve) stenosis; I10 Essential (primary) hypertension; E78.2 Mixed hyperlipidemia; E11.8 Type 2 diabetes mellitus with unspecified complications; K76.9 Liver disease, unspecified; Z88.2 Allergy status to sulfonamides; Z88.6 Allergy status to analgesic agent; Z90.49 Acquired absence of other specified parts of digestive tract; Z95.818 Presence of other cardiac implants and grafts
CPT/HCPCS: 80048; 80076; 85025; 85610; 85730; 93005; 93312; J2003; J2704; 93010